=== PATIENT | female | born 1960 | race Caucasian/White ===

== ENCOUNTER 2019-08-09 12:30 | Emergency (ER) | payer OTHER, SELFPAY ==
[2019-08-09 12:32] VITALS: BP 163/88; PULSE 90; RESP 18; TEMP 36.3; O2SAT 99; BMI 33.7
--- NOTE | 2019-08-09 13:04 | ED.VISSUMM ---
- ER Visit Summary Date of Service: 08/09/19 Chief Complaint: Leg infection History of Present Illness: The patient is a 58 F with medial left lower leg redness and warmth. Patient also has lower extremity edema which is worse since she ran out of her HCTZ. Denies any chest pain, leg pain. Denies cough or hemoptysis. Denies shortness of breath, fever, or any other associated symptoms. Physical Examination: Vital signs unremarkable. Afebrile. Alert and oriented. No acute distress. Heart regular rate and rhythm. Lungs clear. Abdomen soft nontender. Skin unremarkable except for her left lower leg. There is some erythema and warmth medially. The skin is intact. This is approximately the size of the patient's open hand. Symmetric lower extremity edema, 1+, nontender. Neurovascular intact distally. Test Results: None indicated Emergency Department Course and Treatment: We will refill her HCTZ. Patient is planning to follow-up with a local venture capital analyst. She has a history of hypertension and edema. She is not in any distress and does not need a cardiac work-up. Nothing to suggest PE. Patient has a possible mild cellulitis. Will start Bactrim and Keflex. She will return if this worsens or if she has systemic symptoms like fever. Treatment Plan: Bactrim, Keflex, HCTZ Disposition: Discharge Impression: Left lower extremity cellulitis This note was generated with [email or web address] dictation software. It may contain incorrect words, spelling, and punctuation that were not noted in review of the chart prior to signing
--- NOTE | 2019-08-09 13:07 | ED.DEP ---
ED Disposition - Plan for ED Patient: Instructions: Cellulitis Prescriptions: Smz/Tmp Ds [Bactrim Ds] 1 tab PO BID #20 tab Prescription Printed Hydrochlorothiazide [Hctz] 25 mg PO DAILY #30 tab Prescription Printed Cephalexin [Keflex] 500 mg PO Q6 #40 cap Prescription Printed Referrals: Ivis Arnold [NON-STAFF] -
[2019-08-09] MEDS: Smz/Tmp Ds Tablet 1 TABLET PO (13:57)
[2019-08-09] MEDS: Cephalexin 250 MG Capsule 500 MG PO (13:57)
== END 2019-08-09 14:05 | disposition home or self-care (01) ==
LOC: ED 13:21
PROVIDERS: Emergency Provider Emergency Medicine
DX: L03.116 Cellulitis of left lower limb (principal); I10 Essential (primary) hypertension; Z72.0 Tobacco use
CPT/HCPCS: 99282

== ENCOUNTER → 2019-08-30 12:12 | Outpatient (CLI) | payer OTHER, SELFPAY ==
[2019-08-30 11:21] VITALS: BMI 33.7
[2019-08-30 13:37] LABS: Absolute Lymphocyte Count 1.38 X10^3/uL (0.83-4.51); Absolute Neutrophil Count 3.5 X10^3/uL (2.0-7.7); Basophil# 0.04 X10^3/uL; Basophil% 0.7 % (0-1); Eosinophil# 0.13 X10^3/uL; Eosinophils% 2.3 % (0-5); Hematocrit 40.4 % (37-47); Lymphocyte # 1.38 X10^3/ul (4.0); Lymphocyte % 24.3 % (19-41); Mean Corp Hgb Conc 32.2 g/dL (32-36); Mean Corpuscular Hgb 29.7 pg (27.0-32.0); Mean Corpuscular Volume 92.2 fL (81-99); Mean Platelet Vol. 11.8 fl (6.2-12.0); Monocyte# 0.59 X10^3/uL; Monocyte% 10.4 % (0-10); NRBC Flagged by Analyzer 0 % (0-5); Neutrophil # 3.54 X10^3/uL (2.7-7.7); Neutrophil % 62.1 % (47-70); Platelet Count 207 K/mm3 (150-450); RBC Distribution Width CV 14.8 % (11.6-14.6); RBC Distribution Width SD 50.8 fl (35.1-43.9); Red Blood Count 4.38 M/mm3 (4.2-5.4); White Blood Count 5.7 K/mm3 (4.4-11.0)
[2019-08-30 14:04] LABS: Vitamin D,25 Hydroxy 23.9 ng/mL
[2019-08-30 14:10] LABS: ALB/GLOB Ratio 0.9 RATIO (0.9-2.4); AST(SGOT) 23 U/L (15-37); Alanine Aminotransfer ALT/SGPT 31 U/L (13-56); Albumin, Serum 3.5 g/dL (3.2-5.0); Alkaline Phosphatase 132 U/L (45-117); Anion Gap 3 (5-15); BUN 13 mg/dL (7-18); BUN/Creat Ratio 17.4 RATIO (10-20); Calcium,Total 8.8 mg/dL (8.5-10.1); Chloride 106 mmol/L (98-107); Cholesterol 183 mg/dL (200); Creatinine, Serum 0.75 mg/dL (0.55-1.02); EST Glomerular Filtration Rate 85 mL/min (>60); Est Glom Filt Rate - Afr Amer 103 mL/min (>60); Globulin 4.1 g/dL (2.2-4.2); Glucose 86 mg/dL (74-106); High Density Lipoprotein 56 mg/dL; Potassium 3.7 mmol/L (3.5-5.1); Protein, Total 7.6 g/dL (6.4-8.2); Sodium Level 141 mmol/L (136-145); T4 Free Direct 1.07 ng/dL (0.76-1.46); Thyroid Stim Hormone (TSH) 1.14 uIU/mL (0.358-3.74); Triglycerides 87 mg/dL; Very Low Density Lipoprotein 17 mg/dL (5-40)
== END ==
LOC: LABSPEC 12:14
PROVIDERS: PCP Internal Medicine; Referring Provider Internal Medicine; Visit Provider Internal Medicine
DX: Z13.29 Encounter for screening for other suspected endocrine disorder (principal); E55.9 Vitamin D deficiency, unspecified; I10 Essential (primary) hypertension; E78.5 Hyperlipidemia, unspecified
CPT/HCPCS: 80053; 80061; 82306; 84439; 84443; 85025

== ENCOUNTER → 2019-09-06 11:57 | Outpatient (CLI) | payer SELFPAY ==
[2019-08-30 11:21] VITALS: BMI 33.7
--- NOTE | 2019-09-06 12:04 | BI_ITS ---
MAMMOGRAPHY - BILATERAL SCREENING REASON FOR EXAM: Female, 58 years old. Routine annual screening examination. PERTINENT HISTORY: Aunt with breast cancer. TECHNIQUE: Digital bilateral breast nasir (3D mammographic acquisition) in the CC and MLO projections. 2-D mediolateral oblique (MLO) and craniocaudad (CC) views of both breasts were obtained. CAD: Full Field Digital Mammography with Computer Added Detection was performed. COMPARISON: Comparison is made with prior outside examination dated October 19, 2016. FINDINGS: Breast Composition: The breasts are almost entirely fatty. There are no dominant masses or suspicious calcifications. No other significant abnormalities are identified. There has been no significant change since the prior study. BI/SCREEN MAMM (CAD) W/NASIR BILAT IMPRESSION: Stable bilateral screening mammogram. Yearly follow-up mammogram recommended. (A) ASSESSMENT CATEGORY: BIRADS Category 1: Negative. A letter regarding these results will be sent to the patient by the facility within 30 days. Approximately 10% of breast cancers are not detected by mammography. A normal mammogram should not delay biopsy of a clinically suspicious abnormality. [id number] Electronically Signed: Aleksey Ibarra, at 14:21 EDT , Service support ,
== END ==
LOC: OPBI 12:04
PROVIDERS: PCP Internal Medicine; Referring Provider Internal Medicine; Visit Provider Internal Medicine
DX: Z12.31 Encounter for screening mammogram for malignant neoplasm of breast (principal)
CPT/HCPCS: 77063; 77067

== ENCOUNTER → 2020-07-24 11:22 | Outpatient (CLI) | payer MEDICAID, SELFPAY ==
[2020-06-25 10:41] VITALS: BMI 35.2
--- NOTE | 2020-07-24 11:28 | RAD_ITS ---
STUDY: X-RAY - PELVIS AND BILATERAL HIPS REASON FOR EXAM: Bilateral hip pain, fell on left hip this morning, bilateral hip arthroplasties in 2009. TECHNIQUE: AP view of the pelvis.? 2 views of the right hip, and 2 views of the left hip were obtained. COMPARISON: None. FINDINGS: There are surgical clips overlying the left upper sacrum. Normal bilateral iliac wings, sacroiliac joints and visualized sacrum. Normal bilateral superior and inferior pubic rami. Normal pubic symphysis. Normal bilateral ischial tuberosities. There is a right hip arthroplasty without evidence of complication. There is a left hip arthroplasty without evidence of complication. RAD/Hips B/L min 2 views w/ Pelvis IMPRESSION: Uncomplicated bilateral hip arthroplasties. Electronically Signed: Elias Tabares MD at 15:17 EST Tel , Service support ,
== END ==
PROVIDERS: PCP Internal Medicine; Referring Provider Nurse Practitioner Family; Visit Provider Nurse Practitioner Family
DX: M16.0 Bilateral primary osteoarthritis of hip (principal)
CPT/HCPCS: 73521

== ENCOUNTER → 2020-09-25 10:44 | Outpatient (CLI) | payer MEDICAID, SELFPAY ==
[2020-09-25 10:15] VITALS: BMI 33.6
[2020-09-25 12:40] LABS: Anion Gap 2 (5-15); BUN 15 mg/dL (7-18); BUN/Creat Ratio 17.9 RATIO (10-20); Calcium,Total 8.9 mg/dL (8.5-10.1); Chloride 106 mmol/L (98-107); Creatinine, Serum 0.84 mg/dL (0.55-1.02); EST Glomerular Filtration Rate 74 mL/min (>60); Est Glom Filt Rate - Afr Amer 90 mL/min (>60); Glucose 93 mg/dL (74-106); Potassium 4.4 mmol/L (3.5-5.1); Sodium Level 140 mmol/L (136-145)
[2020-09-25 12:46] LABS: Vitamin D,25 Hydroxy 19.4 ng/mL
== END ==
PROVIDERS: PCP Internal Medicine; Referring Provider Internal Medicine; Visit Provider Internal Medicine
DX: E55.9 Vitamin D deficiency, unspecified (principal); I10 Essential (primary) hypertension
CPT/HCPCS: 36415; 80048; 82306

== ENCOUNTER → 2020-12-25 09:36 | Outpatient (CLI) | payer MEDICAID, SELFPAY ==
[2020-12-25 09:08] VITALS: BMI 34.7
[2020-12-25 12:01] LABS: Absolute Neutrophil Count 3.2 X10^3/uL (2.0-7.7); Basophil# 0.02 X10^3/uL; Basophil% 0.3 % (0-1); Eosinophil# 0.21 X10^3/uL; Eosinophils% 3.5 % (0-5); Hematocrit 41.3 % (37-47); Hemoglobin 13.5 g/dL (12.0-15.0); Lymphocyte % 28.7 % (19-41); Mean Corp Hgb Conc 32.7 g/dL (32-36); Mean Corpuscular Hgb 30.1 pg (27.0-32.0); Mean Corpuscular Volume 92.2 fL (81-99); Mean Platelet Vol. 11.8 fl (6.2-12.0); Monocyte# 0.79 X10^3/uL; Monocyte% 13.3 % (0-10); NRBC Flagged by Analyzer 0 % (0-5); Neutrophil # 3.18 X10^3/uL (2.7-7.7); Neutrophil % 53.9 % (47-70); Platelet Count 241 K/mm3 (150-450); RBC Distribution Width CV 15.3 % (11.6-14.6); RBC Distribution Width SD 52.1 fl (35.1-43.9); Red Blood Count 4.48 M/mm3 (4.2-5.4); White Blood Count 5.9 K/mm3 (4.4-11.0)
[2020-12-25 12:18] LABS: ALB/GLOB Ratio 0.8 RATIO (0.9-2.4); AST(SGOT) 15 U/L (15-37); Alanine Aminotransfer ALT/SGPT 27 U/L (13-56); Albumin, Serum 3.3 g/dL (3.2-5.0); Alkaline Phosphatase 111 U/L (45-117); Anion Gap 3 (5-15); BUN 28 mg/dL (7-18); BUN/Creat Ratio 29.1 RATIO (10-20); Calcium,Total 8.9 mg/dL (8.5-10.1); Chloride 107 mmol/L (98-107); Cholesterol 173 mg/dL (200); Creatinine, Serum 0.96 mg/dL (0.55-1.02); EST Glomerular Filtration Rate 63 mL/min (>60); Est Glom Filt Rate - Afr Amer 76 mL/min (>60); Globulin 4.1 g/dL (2.2-4.2); Glucose 89 mg/dL (74-106); High Density Lipoprotein 48 mg/dL; Potassium 4.2 mmol/L (3.5-5.1); Protein, Total 7.4 g/dL (6.4-8.2); Sodium Level 138 mmol/L (136-145); Triglycerides 76 mg/dL; Very Low Density Lipoprotein 15 mg/dL (5-40)
== END ==
PROVIDERS: PCP Internal Medicine; Referring Provider Internal Medicine; Visit Provider Internal Medicine
DX: E78.5 Hyperlipidemia, unspecified (principal); I10 Essential (primary) hypertension
CPT/HCPCS: 36415; 80053; 80061; 85025

== ENCOUNTER → 2021-03-29 08:55 | Outpatient (CLI) | payer MEDICAID, SELFPAY ==
[2021-03-29 12:07] LABS: Anion Gap 5 (5-15); BUN 26 mg/dL (7-18); BUN/Creat Ratio 25.2 RATIO (10-20); Calcium,Total 9.1 mg/dL (8.5-10.1); Chloride 108 mmol/L (98-107); Creatinine, Serum 1.03 mg/dL (0.55-1.02); EST Glomerular Filtration Rate 58 mL/min (>60); Est Glom Filt Rate - Afr Amer 70 mL/min (>60); Glucose 91 mg/dL (74-106); Potassium 4.5 mmol/L (3.5-5.1); Sodium Level 141 mmol/L (136-145)
[2021-03-29 12:10] LABS: Vitamin D,25 Hydroxy 71.3 ng/mL
== END ==
PROVIDERS: PCP Internal Medicine; Referring Provider Internal Medicine; Visit Provider Internal Medicine
DX: E55.9 Vitamin D deficiency, unspecified (principal); I10 Essential (primary) hypertension
CPT/HCPCS: 36415; 80048; 82306

== ENCOUNTER 2021-04-30 05:32 | Day surgery (SDC) | payer MEDICAID, SELFPAY ==
--- NOTE | 2021-04-29 10:14 | EKG12_ITS ---
Test Reason : PRE-OP Blood Pressure : / mmHG Vent. Rate : 063 BPM Atrial Rate : 063 BPM P-R Int : 146 ms QRS Dur : 086 ms QT Int : 390 ms P-R-T Axes : 042 016 023 degrees QTc Int : 399 ms Normal sinus rhythm Normal ECG Confirmed by JOSEFA DONALDSON, DEISI ([id number]), editorial director AMBER CORCORAN ([id number]) on 05/03/2021 9:43:14 AM Referred By: Yeny Wise Confirmed By:ALIN RIVERO MD
[2021-04-29 10:54] LABS: Absolute Lymphocyte Count 1.82 X10^3/uL (0.83-4.51); Absolute Neutrophil Count 3.1 X10^3/uL (2.0-7.7); Basophil# 0.02 X10^3/uL; Basophil% 0.3 % (0-1); Eosinophil# 0.18 X10^3/uL; Eosinophils% 3.1 % (0-5); Hematocrit 37.7 % (37-47); Hemoglobin 12.4 g/dL (12.0-15.0); Lymphocyte # 1.82 X10^3/ul (0.83-4.51); Lymphocyte % 31.4 % (19-41); Mean Corp Hgb Conc 32.9 g/dL (32-36); Mean Corpuscular Hgb 30.5 pg (27.0-32.0); Mean Corpuscular Volume 92.6 fL (81-99); Mean Platelet Vol. 11.7 fl (6.2-12.0); Monocyte# 0.69 X10^3/uL; Monocyte% 11.9 % (0-10); NRBC Flagged by Analyzer 0 % (0-5); Neutrophil # 3.08 X10^3/uL (2.7-7.7); Neutrophil % 53.1 % (47-70); Platelet Count 227 K/mm3 (150-450); RBC Distribution Width CV 14.1 % (11.6-14.6); RBC Distribution Width SD 48.3 fl (35.1-43.9); Red Blood Count 4.07 M/mm3 (4.2-5.4); White Blood Count 5.8 K/mm3 (4.4-11.0)
[2021-04-29 11:16] LABS: Magnesium 2.1 mg/dL (1.6-2.6)
[2021-04-29 11:21] LABS: ALB/GLOB Ratio 0.8 RATIO (0.9-2.4); AST(SGOT) 20 U/L (15-37); Alanine Aminotransfer ALT/SGPT 22 U/L (13-56); Albumin, Serum 3.3 g/dL (3.2-5.0); Alkaline Phosphatase 95 U/L (45-117); Anion Gap 4 (5-15); BUN 35 mg/dL (7-18); BUN/Creat Ratio 28.7 RATIO (10-20); Calcium,Total 9.3 mg/dL (8.5-10.1); Chloride 106 mmol/L (98-107); Creatinine, Serum 1.22 mg/dL (0.55-1.02); EST Glomerular Filtration Rate 48 mL/min (>60); Est Glom Filt Rate - Afr Amer 58 mL/min (>60); Globulin 4.3 g/dL (2.2-4.2); Glucose 90 mg/dL (74-106); Potassium 3.9 mmol/L (3.5-5.1); Protein, Total 7.6 g/dL (6.4-8.2); Sodium Level 138 mmol/L (136-145)
[2021-04-30] VITALS (15 sets, daily range): BP systolic 98–151; BP diastolic 59–96; PULSE 47–81; RESP 14–16; TEMP 36.3–36.9; O2SAT 95–100; BMI 33.7
[2021-04-30] MEDS: dexAMETHasone 10 MG/ML Vial 8 MG IV (06:19)
[2021-04-30] MEDS: Celecoxib 200 MG Capsule 400 MG PO (06:19)
[2021-04-30] MEDS: Lactated Ringers 1,000 ML 40 ML IV ×2 (06:19→08:30)
[2021-04-30] MEDS: Enoxaparin 40 MG/0.4 ML Syringe SC (06:20)
[2021-04-30] MEDS: Gabapentin 600 MG Tablet PO (06:20)
[2021-04-30] MEDS: Acetaminophen 500 MG Tablet 1000 MG PO ×3 (06:20→21:39)
[2021-04-30] MEDS: Scopolamine 1mg/72hr Patch 1 PATCH TD (06:20)
--- NOTE | 2021-04-30 07:29 | PCM.HP.BLA ---
History and Physical Date of Admission: 04/30/21 Vital Signs 04/15/21 15:10 Height 5 ft 5 in Weight: 206 lb BMI 34.2 BP 140/90 H Intake Visit Reasons: [facility] BSO medicaid form needs signed Chief Complaint: pre op [facility] BSO Wildlife Refuge Specialist Required: No Is patient in pain?: No Allergies latex Allergy (Verified 04/15/21 15:10) Hives Medications compress.stocking,knee,reg,lrg #2 ea 08/30/19 [Rx Confirmed 04/15/21] hydrochlorothiazide 25 mg tablet 25 mg PO DAILY #90 tab 09/14/20 [Rx Confirmed 04/15/21] meclizine 25 mg tablet 25 mg PO TID PRN #60 tab 09/25/20 [Rx Confirmed 04/15/21] acetaminophen 650 mg tablet,extended release 650 mg PO Q8H 12/25/20 [History Confirmed 04/15/21] lisinopril 10 mg tablet 10 mg PO QDAY #90 tab 01/04/21 [Rx Confirmed 04/15/21] meloxicam 7.5 mg tablet 7.5 mg PO DAILY PRN #30 tab 02/11/21 [Rx Confirmed 04/15/21] diphenhydramine HCl 25 mg capsule 25 mg PO QHS 03/09/21 [History Confirmed 04/15/21] Is last menstrual period known: No Post menopausal: Yes Patient : No : No PFSH Medical History Abscess of left kidney Arthritis Asthma Back problem Bladder prolapse Callus of foot COVID-19 vaccine dose declined Dizziness Flu vaccine need Gout High blood pressure High cholesterol Hypertension Hypertension Osteoarthritis Prolapse of bladder Seasonal allergies Solitary kidney, acquired Urinary frequency UTI (urinary tract infection) Vertigo Vision problem Vitamin D deficiency Vitamin deficiency Surgical History History of left hip replacement History of right hip replacement Family History Other Alcohol abuse Anxiety Arthritis Asthma Breast cancer CVA (cerebral vascular accident) Cancer Depression Diabetes FH: defects Heart disease High cholesterol Hypertension Kidney disease Mental disorder Myocardial infarction Seizures Severe allergy Social History Smoking Status: Former smoker alcohol intake: current alcohol intake frequency: a few times a month substance use type: does not use what type of physical activity do you participate in: walking frequency: daily seatbelt use: always do you feel safe at home: Yes additional social history: cleaning service HPI TV BSO medicaid form needs signed Details: NICHELLE FERGUSON is a 60 year old who presents for preop visit having TVH BSO for prolapse. Female Reproductive History Menopausal Symptoms: Yes night sweats Pregancy History 2 Elective abortions Hx Para 1 Spontaneous abortions 1 Hx # Term Pregnancies Ectopic pregnancies Hx # Pregnancies Multiple births # of living children 1 ROS Const Constitutional: Reports night sweats Eyes Eyes: Denies system reviewed and no additional complaints, except as documented, as per HPI, blurry vision, change in vision, diplopia, dry eyes, irritation, loss of peripheral vision, photophobia or spots in vision ENT ENT: Reports system reviewed and no additional complaints, except as documented Cardio Card: Denies chest pain Resp Resp: Denies cough or dyspnea GI GI: Denies abdominal pain, bloating, change in stool character, constipation, fecal incontinence, nausea or vomiting : Reports prolapse symptoms, urinary incontinence and vaginal dryness; Denies pelvic pain, sexual dysfunction, urinary frequency, urinary urgency, vaginal discharge, vaginal odor or vaginal pruritus Musc Musc: Reports arthralgias and back pain; Denies muscle weakness Skin Skin/Breast: Denies system reviewed and no additional complaints, except as documented, as per HPI, acne, alopecia, change in hair, nail changes, change in pigmentation, changing lesions, dry skin, hirsutism, jaundice, lesions, new lesions, pruritus, rash, sores, breast mass, breast pain, breast skin changes or other Neuro Neuro: Reports system reviewed and no additional complaints, except as documented Psych Psych: Denies anxiety or depression Endo Endo: Denies cold intolerance, excessive sweating, heat intolerance or polydipsia Isaac/Lymph Hematologic/Lymphatic: Denies system reviewed and no additional complaints, except as documented, Denies as per HPI, Denies easy bleeding, Denies easy bruising, Denies lymphadenopathy and Denies other Exam Const General: cooperative, healthy appearing, comfortable, no acute distress and well developed Orientation: alert HENMT Head: normal to inspection, normocephalic and atraumatic Ears: hearing grossly normal bilaterally and external ears normal Nose: external nose normal and nares normal Face and sinus: normal facial exam Neck Neck: normal visual inspection, full ROM, no lymphadenopathy and trachea midline Thyroid: thyroid normal Chest Chest palpation & inspection: normal inspection of the chest Breast inspection: normal inspection of the breasts, normal inspection of the axillae, abnormal inspection of the axilla and abnormal inspection of the breast Resp Effort & Inspection: normal respiratory effort Auscultation: clear to auscultation bilaterally Cardio Rate: regular rate Rhythm: regular rhythm Heart Sounds: S1 normal and S2 normal GI Inspection: normal to inspection and non-distended Palpation: soft, no hepatosplenomegaly, no hepatomegaly, not rigid and nontender General: bladder normal to palpation External Female Exam: abnormal external appearance (atrophic introitus), normal appearance of the urethra and no lesions Urethra: normal appearance of the urethra Speculum Exam - Vagina: abnormal appearance of the vagina, normal vaginal discharge, vagina atrophic and no lesions Speculum Exam - Cervix: normal appearance of the cervix Bimanual Exam- Vagina & Uterus: normal bimanual exam, uterine size normal, bladder normal to palpation, uterine shape normal, uterine mobility normal and non-tender Bimanual Exam- Adnexa, other: normal adnexae, no masses, rectocele, cystocele and vaginal apex descent Pelvic Support: cystocele, rectocele and vaginal apex descent Musc Other: gross motor intact no deficits, full bilateral strength Skin General: no rashes or lesions noted and atrophy Neuro General: patient alert, patient awake, moves all extremities and no focal motor deficits Motor: muscle tone normal throughout Extrem General: normal to inspection and no pedal edema Psych Appearance: grossly normal Mental Status: mental status grossly normal Affect: normal affect Speech and Movement: speech and movement normal Coding Level of Care Code No Charge Diagnoses Incomplete uterovaginal prolapse N81.2 Assessment and Plan Assessment and Plan (1) Incomplete uterovaginal prolapse: Status: Acute Comment: TVHBSO combo case with alejandro Santos - Dr. Yeny Wise MD: After discussing the patient's diagnosis and treatment plan options, patient wishes to proceed with surgical management. I have discussed with the patient the risks, benefits, and alternatives of the procedure which include but are not limited to risks of anesthesia, bleeding, infection, possible damage to bowel, bladder, or surrounding vasculature which could lead to additional surgery to evaluate any complications. Patient agrees to procedure and wishes to proceed. ACOG/uptodate references given for additional information regarding procedure. UPDATE- I have seen the patient and performed any clinically relevant updates to the history and physical exam. Yeny Wise MD
--- NOTE | 2021-04-30 07:30 | HYST_PTH ---
PATIENT: NICHELLE FERGUSON LOC: [facility] – [place] U#:[id number] AGE/SX: 60/F ROOM: RE04/30/[address]: Dr. Yeny Wise MD : 1960 BED: DIS: 05/01/2021 SPEC #: [id number] RECD: 04/30/21 12:27 STATUS: CATHRYN RODRIGUEZ #: [id number] JACLYN: 04/30/21 07:[address]: Yeny Wise DEPT: SURGICAL PATHOLOGY RECD BY: Precious Sosa ENTERED: 04/30/21 12:38 SP TYPE: HYSTERECT OTHR DR: MD Dr. Cuca Ibarra MD Tissues: Uterus, NOS Procedures: Surgery Specimen Level V HEADER OPERATION: ERAS, vaginal hysterectomy, salpingo-oophorectomy PRE-OP DIAGNOSIS: Incomplete uterovaginal prolapse TISSUE SUBMITTED: Cervix, uterus, bilateral fallopian tubes and ovaries MICROSCOPIC DIAGNOSIS Uterus, hysterectomy: Cervix ? nabothian cysts and mild chronic inflammation. Endometrium ? inactive with focal cystic change. Myometrium ? adenomyosis. Right and left ovaries ? corpora albicantia and benign epithelial cysts. Right and left fallopian tubes ? no pathologic change. AM:ziyad 05/03/2021 MICROSCOPIC DESCRIPTION Slides are reviewed. GROSS DESCRIPTION Received in fixative is one container labeled with the patient's name and designated uterus, cervix, bilateral fallopian tubes and ovaries. The specimen consists of a hysterectomy specimen consisting of uterus with cervix and detached bilateral fallopian tubes and ovaries. The uterus with cervix weighs 32 gm and measures 7 x 4 x 2.5 cm. The serosal surface is flood, glistening. The ectocervical mucosa is unremarkable. The external os is slit-like in contour. The endocervical canal measures 2.5 cm in length and the endocervical mucosa is flood, glistening and unremarkable. Sections of the cervix reveal a few cysts filled with mucoid material. The triangular endometrial cavity measures 3.5 cm in length and 1.5 cm in width. The endometrium is flood, glistening without any mass lesion and measures <0.1 cm in thickness. Sections of the uterine wall do not reveal any mass lesion and measures 1 cm in thickness. The fallopian tubes are not identified as right or left. One of the fallopian tubes measure 3 cm in length and 0.5 cm in diameter. The fimbrial end is identified. Sections reveal unremarkable cut surfaces. No tubo-ovarian adhesions are identified. Adjacent ovary measures 1.5 x 1 x 0.5 cm. Sections reveal unremarkable cut surfaces. The second fallopian tube measures 2.5 cm in length and 0.6 cm in diameter. It is similar appearance to the first one. The second ovary is present in two separate pieces and measures 1 x 0.7 x 0.5 cm and 1 x 0.2 x 0.2 cm. Sections reveal unremarkable cut surfaces. Business Systems Consultant sections are submitted in eight cassettes as follows: 1 - anterior cervix, 2 - posterior cervix, 3 & 4 - anterior uterine wall, 5 & 6 - posterior uterine wall, 7 - one fallopian tube and adjacent ovary, 8 - second fallopian tube and ovary, second ovary submitted in entirety. / RUTH:ziyad 04/30/21 TC:5 CPT: 53775
--- NOTE | 2021-04-30 07:30 | PCM.OPRPT ---
Problems Associated Problem List Diagnoses (1) Incomplete uterovaginal prolapse: (2) Hypertension: (3) Asthma: Report of Operation Date of Procedure: 04/30/21 Pre-Operative Diagnosis: see PL Post-Operative Diagnosis: same Surgery/Procedure Performed:: TVH BSO Description of Surgical Findings:: nl uterus tubes ovaries senior biostatistician/group leader: Anju Oglesby Type of Anesthesia: General Specimen's removed: uterus, tubes, ovaries Drains: fuentes Estimated Blood Loss (mL): 75 Fluids Replaced: crystalloid Description of Procedure: Patient was taken to the operating room and was placed under general anesthesia was prepped and draped in normal sterile fashion in the dorsal lithotomy position. Preoperative antibiotics and SCDs and Fuentes catheter was placed inside the bladder. Weighted speculum was placed in the vagina and the anterior and posterior lip of the cervix was grasped with 2 Tom clamps and circumferentially injected with dilute vasopressin. A circumferential incision was made with a scalpel and the posterior cul-de-sac was entered into sharply and a longneck speculum was placed. The anterior cul-de-sac was also dissected down and entered into sharply and the uterosacral ligaments were clamped cut and suture ligated bilaterally followed by the cardinal ligaments which were Clamped cut and suture ligated bilaterally with 0 Monocryl. The uterus serially descended and progressive bites were taken bilaterally up to the level of the utero-ovarian ligament bilaterally which was clamped transected and double ligated with 0 Monocryl suture and 0 Vicryl free tie. Bilateral fallopian tubes and ovaries were well visualized and noted be within normal limits and the IP ligament was transected across the base with a cony clamp, then ovaries and tubes removed and the pedicle double ligated with O monocryl. Excellent hemostasis was noted. The vagina was closed with [id number] 0 Vicryl pop offs including the posterior and anterior peritoneum in the reapproximation. Excellent hemostasis was noted. Then Dr. Sanchez began her portion of the procedure. Grafts/Implants Used: none Complications none Admit VTE Documentation VTE Present on Admission: No VTE Mechan Device Prophylaxis: SCD's VTE Pharm Prophylaxis ordered?: Yes Multi Select Codes Urinary/Genital Urinary/Genital CPT Codes: 88086 TVH+BS/O <250gr uterus
[2021-04-30] MEDS: Cefazolin 2 GM in 0.9% Normal Saline 100 ML IV (07:40)
--- NOTE | 2021-04-30 07:45 | PCM.DC ---
Discharge Instructions Diet Discharge Diet: No restrictions Activity Discharge Activity: Return to Normal Activity, May Not Drive (while taking narcotic pain medications.) and May Shower May resume sexual activity in: 6-8 weeks Dressing / Incision Call your doctor if your incision/area has: Continuous Slow Oozing, Sudden Increased Bleeding, Increased Pain/ Swelling, Increased Redness and Foul Smelling Discharge Call your doctor if you observe: Fever of 101 or Higher, Inability to urinate, Inability to have a bowel movement and Using more than 1 pad per hour Follow Up Care Please Follow Up With: Yeny Wise MD Test Results: Test results from this visit will be discussed in further detail at your follow-up appointment, if applicable. Discharge Plan Admission Primary Reason for Your Visit: hysterectomy Attending Provider: Yeny Wise Primary Care Provider: Solange Nuñez Consulting Providers: Cuca Sanchez Discharge Orders/Prescriptions Prescriptions: New oxycodone-acetaminophen [Percocet] 5-325 mg tablet 1 tab PO Q6H PRN (Reason: pain) 7 Days Qty: 20 RF: 0 naproxen [naproxen] 500 MG tablet 500 mg PO BID PRN PRN (Reason: Pain) Qty: 30 RF: 1 Continued (DME) compress.stocking,knee,reg,lrg Misc See Rx Instructions .ROUTE .MEDSUPPLY Qty: 2 RF: 1 meclizine 25 mg tablet 25 mg PO TID PRN (Reason: dizziness) Qty: 60 RF: 1 diphenhydramine HCl [Benadryl] 25 mg capsule 100 mg PO 4X/DAY RF: 0 acetaminophen 650 mg Tablet Extended Release 650 mg PO Q8H PRN (Reason: Pain) RF: 0 hydrochlorothiazide 25 mg tablet 25 mg PO DAILY Qty: 90 RF: 3 lisinopril 10 mg tablet 10 mg PO QDAY Qty: 90 RF: 3 Referrals / Follow Up: Solange Nuñez MD [Primary Care Provider] - Disposition Disposition (needs filled in before D/C Order can be placed): Home, Self Care
[2021-04-30] MEDS: Lubricating Jelly 60 GM Tube 30 GM (07:50)
[2021-04-30 07:51] LABS: Bedside Glucose 84 mg/dL (70-110)
--- NOTE | 2021-04-30 08:12 | PCM.OPRPT ---
Problems Associated Problem List Diagnoses (1) Incomplete uterovaginal prolapse: (2) Solitary kidney, acquired: Report of Operation Date of Procedure: 04/30/21 Pre-Operative Diagnosis: Incomplete uterovaginal prolapse, solitary right kidney Post-Operative Diagnosis: Same Surgery/Procedure Performed:: Anterior repair with dermis, bilateral sacrospinous ligament fixation, posterior repair, cystoscopy with right ureteral catheterization Surgeon: Cuca Sanchez Type of Anesthesia: General Specimen's removed: None Estimated Blood Loss (mL): 25 cc Description of Procedure: The patient is a 60-year-old female with pelvic organ prolapse who presents for definitive surgical intervention after being evaluated in the office with cystoscopy and urodynamics. Informed consent was obtained. The patient was taken to the operating room and placed on the operating room table. Anesthesia monitored the head, neck, airway, IV access and vital signs throughout the case. Once anesthesia was appropriately ministered the patient was placed into dorsal lithotomy in Trendelenburg position and was prepped and draped in usual sterile fashion. A Joseph catheter was inserted under sterile conditions. At this time Dr. Wise proceeded with her portion of the procedure and then closed the vaginal cuff. At this time I isolated the anterior vaginal wall and injected submucosally with vasopressin for hydrostatic dissection and hemostatic control. A midline vertical incision approximately 2 cm in length was then made and then sharp and blunt dissection was performed on both sides until the ischial spines and sacrospinous ligaments were identified and freed from surrounding tissues. The Capio device was used to pass an Ethibond suture through each sacrospinous ligament. The suture was then brought through the dermis that was trimmed to size and then out into the vaginal mucosa at the cuff line laterally. The dermis was then attached bilaterally to the area of the white line and at the area of the bladder neck using 2-0 Vicryl interrupted sutures. The midline incision was closed using running interlocking 2-0 Vicryl. The Ethibond sutures were then tied into position. The posterior vaginal wall was wide open with no perineal body support. The posterior wall was then injected submucosally with vasopressin for hydrostatic dissection and hemostatic control. A midline incision was made. Sharp and blunt dissection was performed bilaterally until the rectovaginal fascia was clearly identified. This was brought together in a 2 layer closure. The perineal body was also reconstructed using interrupted sutures. At this time the incision was closed using running interlocking 2-0 Vicryl. The Joseph catheter was removed with deflation of the balloon. A cystoscope was inserted through the urethra under direct visualization into the urinary bladder. The bladder mucosa was visualized in its entirety and found to be without evidence of injury, foreign body or hemorrhage. The patient having only her right kidney remaining, a right ureteral jet was clearly observed and a whistle-tip catheter easily inserted to 20 cm without evidence of obstruction or injury. At this time the Joseph catheter was replaced and the vagina was packed with vaginal packing. She was awakened and taken to the recovery room in good condition. There were no complications during this procedure. Grafts/Implants Used: Dermis Complications None Admit VTE Documentation VTE Present on Admission: Yes VTE Mechan Device Prophylaxis: SCD's VTE Pharm Prophylaxis ordered?: Yes
--- NOTE | 2021-04-30 08:14 | PCM.DC ---
Discharge Instructions Diet Discharge Diet: No restrictions Activity May resume sexual activity in: 8 weeks Lifting Restrictions: 5 pounds Additional Activity Instructions:: no exercising, no strenuous activity, no sexual activity, no tub bathing, hot tubs or swimming Dressing / Incision Call your doctor if your incision/area has: Continuous Slow Oozing, Sudden Increased Bleeding, Increased Pain/ Swelling, Increased Redness and Foul Smelling Discharge Call your doctor if you observe: Fever of 101 or Higher, Inability to urinate, Inability to have a bowel movement and Using more than 1 pad per hour Follow Up Care Please Follow Up With: Yeny Wise MD Test Results: Test results from this visit will be discussed in further detail at your follow-up appointment, if applicable. Discharge Plan Admission Primary Reason for Your Visit: hysterectomy Attending Provider: Yeny Wise Primary Care Provider: Solange Nuñez Consulting Providers: Cuca Sancehz Discharge Orders/Prescriptions Prescriptions: New oxycodone-acetaminophen [Percocet] 5-325 mg tablet 1 tab PO Q6H PRN (Reason: pain) 7 Days Qty: 20 RF: 0 naproxen [naproxen] 500 MG tablet 500 mg PO BID PRN PRN (Reason: Pain) Qty: 30 RF: 1 cephalexin [cephalexin] 500 MG capsule 500 mg PO Q12 3 Days Qty: 6 RF: 0 Continued (DME) compress.stocking,knee,reg,lrg Misc See Rx Instructions .ROUTE .MEDSUPPLY Qty: 2 RF: 1 meclizine 25 mg tablet 25 mg PO TID PRN (Reason: dizziness) Qty: 60 RF: 1 diphenhydramine HCl [Benadryl] 25 mg capsule 100 mg PO 4X/DAY RF: 0 acetaminophen 650 mg Tablet Extended Release 650 mg PO Q8H PRN (Reason: Pain) RF: 0 hydrochlorothiazide 25 mg tablet 25 mg PO DAILY Qty: 90 RF: 3 lisinopril 10 mg tablet 10 mg PO QDAY Qty: 90 RF: 3 Referrals / Follow Up: Solange Nuñez MD [Primary Care Provider] - Disposition Disposition (needs filled in before D/C Order can be placed): Home, Self Care
[2021-04-30] MEDS: Vasopressin 20 UNITS/ML Vial (09:05)
[2021-04-30] MEDS: Ondansetron 4 MG/2 ML Vial IV (10:00)
--- NOTE | 2021-04-30 10:34 | SUR.PHASEI ---
Latex free fuentes d/t patient allergy. Patient monitored on etCO2 NC for ERAS protocol. will continue to monitor.
--- NOTE | 2021-04-30 11:34 | SUR.PHASEI ---
This nurse called administrative secretary to update family. Patient stable and comfortable. Awaiting room to be cleaned.
[2021-04-30] MEDS: hydroCHLOROthiazide 25 MG Tablet PO (13:29)
[2021-04-30] MEDS: Lactated Ringers 1,000 ML 70 ML IV (13:29)
[2021-04-30] MEDS: Docusate Sodium 100 MG Capsule PO ×2 (13:29→21:39)
[2021-04-30] MEDS: Meclizine HCl 25 MG Tablet PO (13:30)
[2021-04-30] MEDS: Ketorolac 30 MG/ML Syringe IV ×2 (15:04→21:39)
[2021-04-30] MEDS: Cephalexin 500 MG Capsule PO (21:39)
[2021-05-01] MEDS: Acetaminophen 500 MG Tablet 1000 MG PO ×2 (03:19→08:24)
[2021-05-01 03:50] VITALS: BP 116/71; PULSE 71; RESP 18; TEMP 36.7; O2SAT 95
[2021-05-01] MEDS: Ketorolac 30 MG/ML Syringe IV (05:54)
[2021-05-01 06:27] LABS: Hematocrit 31.4 % (37-47); Hemoglobin 10.3 g/dL (12.0-15.0); Mean Corp Hgb Conc 32.8 g/dL (32-36); Mean Corpuscular Hgb 30.4 pg (27.0-32.0); Mean Corpuscular Volume 92.6 fL (81-99); Mean Platelet Vol. 12.2 fl (6.2-12.0); Platelet Count 193 K/mm3 (150-450); RBC Distribution Width CV 14.3 % (11.6-14.6); RBC Distribution Width SD 48.3 fl (35.1-43.9); Red Blood Count 3.39 M/mm3 (4.2-5.4); White Blood Count 15.6 K/mm3 (4.4-11.0)
[2021-05-01 06:51] VITALS: O2SAT 95
[2021-05-01 07:56] VITALS: BP 113/63; PULSE 70; RESP 15; TEMP 36.8; O2SAT 99
[2021-05-01] MEDS: hydroCHLOROthiazide 25 MG Tablet PO (08:24)
[2021-05-01] MEDS: Enoxaparin 40 MG/0.4 ML Syringe SC (08:24)
[2021-05-01] MEDS: Lisinopril 10 MG Tablet PO (08:24)
[2021-05-01] MEDS: Cephalexin 500 MG Capsule PO (08:24)
[2021-05-01] MEDS: Docusate Sodium 100 MG Capsule PO (08:24)
--- NOTE | 2021-05-01 10:52 | PCM.PN.GU ---
Subjective Subjective Sitting up in bed, comfortable. Some cramping from gas type pain. Ambulating and tolerating p.o. intake. Catheter has been removed and she has not yet voided.No other issues overnight. Objective Data Objective Data Vital Signs: Vital Signs Temp Pulse Resp BP Pulse Ox 98.3 F 70 15 113/63 99 05/01/21 07:56 05/01/21 07:56 05/01/21 07:56 05/01/21 07:56 05/01/21 07:56 Oxygen Flow Rate (L/min) 4 Oxygen Delivery Method Room Air Weight: 92 kg Body Mass Index (BMI) 33.7 Intake & Output: Intake and Output for Last 24 Hours 04/29/21 04/30/21 05/01/21 23:59 23:59 23:59 Intake Total 2585.5 / 3185.5 1900 / 1900 Output Total 685 / 1010 875 / 875 Balance 1900.5 / 2175.5 1025 / 1025 Lab / Micro Data Result Diagrams: 05/01/21 05:53 04/29/21 10:34 Labs: Laboratory Results - last 24 hr 05/01/21 05:53: WBC 15.6 H, RBC 3.39 L, Hgb 10.3 L, Hct 31.4 L, MCV 92.6, MCH 30.4, MCHC 32.8, RDW Std Deviation 48.3 H, RDW Coeff of Linda 14.3, Plt Count 193, MPV 12.2 H Micro: Microbiology 04/29/21 10:20 Interface Orders SARS-CoV-2 Antigen (Rapid) - Final Physical Exam Narrative Alert and oriented x3. Comfortable in no acute distress. Abdomen soft. Joseph has been removed. Assessment & Plan Assessment/Plan (1) Incomplete uterovaginal prolapse: (2) Solitary kidney, acquired: PLAN: Await trial of void Home later today
== END 2021-05-01 13:00 | disposition home or self-care (01) ==
LOC: SDC 05:32 → AC 06:45 → MS3 05-01 12:45 → AC 05-03 09:46 → MS3 05-03 09:46
PROVIDERS: Anesthesiology; Urology; PCP Internal Medicine; Referring Provider Obstetrics & Gynecology; Visit Provider Obstetrics & Gynecology
PROC: (CPT 58260; principal; 2021-04-30 07:10)
PROC: (CPT 57260; 2021-04-30 07:10)
DX: N81.2 Incomplete uterovaginal prolapse (principal); Z90.5 Acquired absence of kidney; I10 Essential (primary) hypertension; E78.00 Pure hypercholesterolemia, unspecified; J45.909 Unspecified asthma, uncomplicated; Z82.49 Family history of ischemic heart disease and other diseases of the circulatory system; Z91.040 Latex allergy status; Z83.49 Family history of other endocrine, nutritional and metabolic diseases; Z87.891 Personal history of nicotine dependence; Z96.643 Presence of artificial hip joint, bilateral
CPT/HCPCS: 00944; 52005; 57260; 57282; 58262; 36415; 80053; 82962; 83735; 85025; 85027; 86850; 86900; 86901; 87426; 88307; 93005; 99251; 99406; C9803; J7120; C1758; G0463; J2405

== ENCOUNTER 2021-07-05 08:59 | Outpatient (CLI) | payer MEDICAID, SELFPAY ==
[2021-07-05 12:17] LABS: Erythrocyte Sedimentation Rate 42 mm/hr (0-30)
[2021-07-05 12:27] LABS: Anion Gap 3 (5-15); BUN 28 mg/dL (7-18); BUN/Creat Ratio 32.6 RATIO (10-20); Calcium,Total 9.1 mg/dL (8.5-10.1); Chloride 107 mmol/L (98-107); Creatinine, Serum 0.86 mg/dL (0.55-1.02); EST Glomerular Filtration Rate 72 mL/min (>60); Est Glom Filt Rate - Afr Amer 87 mL/min (>60); Glucose 90 mg/dL (74-106); Potassium 4.3 mmol/L (3.5-5.1); Rheumatoid Factor < 10.0 IU/mL (<15); Sodium Level 138 mmol/L (136-145)
[2021-07-07 13:40] LABS: CCP IgG Antibodies 7 units (0-19)
== END 2021-07-05 23:59 | disposition home or self-care (01) ==
LOC: BIMLAB 09:00
PROVIDERS: PCP Internal Medicine; Referring Provider Internal Medicine; Visit Provider Internal Medicine
DX: M19.90 Unspecified osteoarthritis, unspecified site (principal)
CPT/HCPCS: 36415; 80048; 85652; 86200; 86431

== ENCOUNTER → 2021-12-21 | Outpatient (CLI) | payer OTHER, MEDICAID, SELFPAY ==
[2021-12-21 12:29] LABS: Absolute Neutrophil Count 5.8 X10^3/uL (2.0-7.7); Basophil# 0.03 X10^3/uL; Basophil% 0.3 % (0-1); Eosinophil# 0.08 X10^3/uL; Eosinophils% 0.9 % (0-5); Hematocrit 40.5 % (37-47); Hemoglobin 13.2 g/dL (12.0-15.0); Mean Corp Hgb Conc 32.6 g/dL (32-36); Mean Corpuscular Hgb 30.9 pg (27.0-32.0); Mean Corpuscular Volume 94.8 fL (81-99); Mean Platelet Vol. 11.8 fl (6.2-12.0); Monocyte# 0.82 X10^3/uL; Monocyte% 9.5 % (0-10); NRBC Flagged by Analyzer 0 % (0-5); Neutrophil # 5.79 X10^3/uL (2.7-7.7); Neutrophil % 67.1 % (47-70); Platelet Count 233 K/mm3 (150-450); RBC Distribution Width CV 14.9 % (11.6-14.6); RBC Distribution Width SD 51.5 fl (35.1-43.9); Red Blood Count 4.27 M/mm3 (4.2-5.4); White Blood Count 8.6 K/mm3 (4.4-11.0)
[2021-12-21 13:06] LABS: ALB/GLOB Ratio 0.8 RATIO (0.9-2.4); AST(SGOT) 26 U/L (15-37); Alanine Aminotransfer ALT/SGPT 35 U/L (13-56); Albumin, Serum 3.7 g/dL (3.2-5.0); Alkaline Phosphatase 117 U/L (45-117); Anion Gap 5 (5-15); BUN 23 mg/dL (7-18); BUN/Creat Ratio 26.5 RATIO (10-20); Calcium,Total 9.7 mg/dL (8.5-10.1); Chloride 106 mmol/L (98-107); Cholesterol 193 mg/dL (200); Creatinine, Serum 0.87 mg/dL (0.55-1.02); EST Glomerular Filtration Rate 71 mL/min (>60); Est Glom Filt Rate - Afr Amer 86 mL/min (>60); Globulin 4.4 g/dL (2.2-4.2); Glucose 86 mg/dL (74-106); High Density Lipoprotein 56 mg/dL; Potassium 3.9 mmol/L (3.5-5.1); Protein, Total 8.1 g/dL (6.4-8.2); Sodium Level 139 mmol/L (136-145); Triglycerides 84 mg/dL; Very Low Density Lipoprotein 17 mg/dL (5-40); Vitamin D,25 Hydroxy 36.6 ng/mL
== END | disposition home or self-care (01) ==
PROVIDERS: PCP Internal Medicine; Referring Provider Internal Medicine; Visit Provider Internal Medicine
DX: E55.9 Vitamin D deficiency, unspecified (principal); I10 Essential (primary) hypertension; E78.5 Hyperlipidemia, unspecified
CPT/HCPCS: 36415; 80053; 80061; 82306; 85025

== ENCOUNTER → 2022-01-07 | Outpatient (CLI) | payer OTHER, MEDICAID, SELFPAY ==
--- NOTE | 2022-01-07 14:58 | BI_ITS ---
MAMMOGRAPHY - BILATERAL SCREENING REASON FOR EXAM: Female, 61 years old. Routine annual screening examination. PERTINENT HISTORY: Aunt with breast cancer. TECHNIQUE: Digital bilateral breast nasir (3D mammographic acquisition) in the CC and MLO projections. 2-D mediolateral oblique (MLO) and craniocaudad (CC) views of both breasts were obtained. CAD: Full Field Digital Mammography with Computer Added Detection was performed. COMPARISON: Screening mammogram from 09/06/2019. FINDINGS: Breast Composition: There are scattered areas of fibroglandular density. There are no dominant masses or suspicious calcifications. No other significant abnormalities are identified. There has been no significant change since the prior study. BI/SCRN MAMM (CAD)W/NASIR BILAT IMPRESSION: Stable bilateral screening mammogram. Yearly follow-up mammogram recommended. (A) ASSESSMENT CATEGORY: BIRADS Category 1: Negative. A letter regarding these results will be sent to the patient by the facility within 30 days. Approximately 10% of breast cancers are not detected by mammography. A normal mammogram should not delay biopsy of a clinically suspicious abnormality. Electronically Signed: Ariel Patrick, at 15:56 EDT ,
== END | disposition home or self-care (01) ==
LOC: OPBI 14:58
PROVIDERS: PCP Internal Medicine; Referring Provider Internal Medicine; Visit Provider Internal Medicine
DX: Z12.31 Encounter for screening mammogram for malignant neoplasm of breast (principal)
CPT/HCPCS: 77063; 77067

== ENCOUNTER → 2022-03-08 | Outpatient (CLI) | payer OTHER, MEDICAID, SELFPAY ==
--- NOTE | 2022-03-09 05:59 | PFTCOMP ---
COMPLETE PULMONARY FUNCTION TEST INTERPRETATION Brief HPI: Patient is a 61-year-old female, currently under the care of Dr. Nuñez, who presents to [facility] for complete pulmonary function tests secondary to diagnosis of asthma. Respiratory therapist reports good effort and reproducible results. Interpretation: Forced expiration spirometry shows a mild large airways obstructive ventilatory defect with an FEV1 of 80% predicted. There is a significant bronchodilator response in FEV1 by strict ATS criteria. Spirograms are of good quality and plateau slowly, indicating slowly emptying areas of the lungs. The respiratory flow volume loop shows decreased expiratory flow rates at high lung volumes consistent with small airways obstruction. Lung volumes by body plethysmography show a slightly decreased total lung capacity at 3.97 L, 78% predicted. All other lung volumes are reduced symmetrically. Diffusion capacity by carbon monoxide is at the lower limit of normal at 70% predicted. The airway resistance is elevated. No previous pulmonary function tests were available for review. Impression: Fully reversible mild large airways obstructive ventilatory defect, but does have a residual mild restriction with symmetric reduction diffusion capacity.
== END | disposition home or self-care (01) ==
LOC: PSN 06:56
PROVIDERS: PCP Internal Medicine; Referring Provider Internal Medicine; Visit Provider Internal Medicine
DX: J45.909 Unspecified asthma, uncomplicated (principal)
CPT/HCPCS: 94060; 94726; 94729

== ENCOUNTER → 2022-06-10 | Outpatient (CLI) | payer OTHER, MEDICAID, SELFPAY ==
[2022-06-10 16:37] LABS: Absolute Neutrophil Count 2.4 X10^3/uL (2.0-7.7); Basophil# 0.02 X10^3/uL; Basophil% 0.4 % (0-1); Eosinophil# 0.14 X10^3/uL; Eosinophils% 2.5 % (0-5); Hematocrit 37.9 % (37-47); Hemoglobin 12.6 g/dL (12.0-15.0); Lymphocyte % 42.1 % (19-41); Mean Corp Hgb Conc 33.2 g/dL (32-36); Mean Corpuscular Hgb 31.5 pg (27.0-32.0); Mean Corpuscular Volume 94.8 fL (81-99); Mean Platelet Vol. 11.3 fl (6.2-12.0); Monocyte# 0.74 X10^3/uL; NRBC Flagged by Analyzer 0 % (0-5); Neutrophil # 2.39 X10^3/uL (2.7-7.7); Neutrophil % 41.8 % (47-70); Platelet Count 243 K/mm3 (150-450); RBC Distribution Width CV 15.2 % (11.6-14.6); RBC Distribution Width SD 52.9 fl (35.1-43.9); White Blood Count 5.7 K/mm3 (4.4-11.0)
[2022-06-10 17:33] LABS: ALB/GLOB Ratio 0.8 RATIO (0.9-2.4); AST(SGOT) 20 U/L (15-37); Alanine Aminotransfer ALT/SGPT 39 U/L (13-56); Albumin, Serum 3.5 g/dL (3.2-5.0); Alkaline Phosphatase 127 U/L (45-117); Anion Gap 4 (5-15); BUN 19 mg/dL (7-18); BUN/Creat Ratio 21.4 RATIO (10-20); Chloride 107 mmol/L (98-107); Creatinine, Serum 0.89 mg/dL (0.55-1.02); EST Glomerular Filtration Rate 69 mL/min (>60); Est Glom Filt Rate - Afr Amer 84 mL/min (>60); Globulin 4.2 g/dL (2.2-4.2); Glucose 97 mg/dL (74-106); Magnesium 2.3 mg/dL (1.6-2.6); Potassium 3.9 mmol/L (3.5-5.1); Protein, Total 7.7 g/dL (6.4-8.2); Sodium Level 140 mmol/L (136-145)
== END | disposition home or self-care (01) ==
LOC: BIMLAB 15:04
PROVIDERS: PCP Internal Medicine; Referring Provider Internal Medicine; Visit Provider Internal Medicine
DX: I10 Essential (primary) hypertension (principal)
CPT/HCPCS: 36415; 80053; 83735; 85025

== ENCOUNTER → 2022-10-05 | Outpatient (CLI) | payer OTHER, MEDICAID, SELFPAY ==
--- NOTE | 2022-10-05 08:42 | BD_ITS ---
STUDY: DUAL ENERGY X-RAY ABSORPTIOMETRY / DXA REASON FOR EXAM: Female, 61 years old. Post Menopausal TECHNIQUE: Bone Mineral Density (BMD) measurements of lumbar spine and left forearm were obtained. The patient has bilateral total hip replacements. COMPARISON: None. FINDINGS: Lumbar Spine (L1-L4): g/cm2 (1.052) / T-score (0.0) / Z-score (1.5) Findings are suggestive of normal bone density with a low fracture risk. Left Forearm: g/cm2 (0.449) / T-score (-2.4) / Z-score (-1.1) BD/Dexa Bone Density Study IMPRESSION: The patient is considered osteopenic as outlined below according to World Kirt Organization (WHO) criteria with a high fracture risk Reference Information: The T-score is the number of standard deviations above or below the standard which is normal for young adults at their peak bone mineral density. The World Health Organization (WHO) interprets the T-scores as follows: Above -1 Normal bone density Between -1 and -2.5 Osteopenia Equal to / or below -2.5 Osteoporosis As a practical clinical guideline, osteopenia may be graded as follows: Mild -1 through -1.5 Moderate -1.6 through -2.0 Severe -2.1 through -2.4 The Z-score is the number of standard deviations above or below age-matched controls. A Z-score of less than -1.5 would be considered abnormal. References: 1. NIH Osteoporosis and Related Bone Diseases www osteo.org 2. International Society for Clinical Densitometry www iscd.org 3. National Osteoporosis Foundation www nof.org Electronically Signed: Aleksey Ibarra MD at 8:48 EDT ,
== END | disposition home or self-care (01) ==
LOC: OPBD 08:34
PROVIDERS: PCP Internal Medicine; Referring Provider Internal Medicine; Visit Provider Internal Medicine
DX: Z78.0 Asymptomatic menopausal state (principal)
CPT/HCPCS: 77080

== ENCOUNTER → 2022-11-21 | Outpatient (CLI) | payer MEDICAID, SELFPAY ==
--- NOTE | 2022-11-21 16:02 | NEURO ---
NCS and/or EMG Patient Report Ordering Doctor: Flaco Yen DATE OF SERVICE: 11/21/22 Findings: Nerve conduction studies were performed in the right and left upper extremities. The right median motor study recording the abductor pollicis brevis showed a normal amplitude, prolonged distal latency and borderline conduction velocity. The right ulnar motor study recording the abductor digiti minimi showed a normal amplitude, normal distal latency and normal conduction velocity. No conduction block or focal slowing was present across the elbow. The right median sensory response recording digit two showed a reduced amplitude, prolonged latency and markedly slowed conduction velocity. The right ulnar sensory response recording digit five showed a normal amplitude, latency and conduction velocity. The right radial sensory response recording over the extensor snuff box showed a normal amplitude, latency and conduction velocity. The left median motor study recording the abductor pollicis brevis showed a reduced amplitude, prolonged distal latency and slowed conduction velocity. The left ulnar motor study recording the abductor digiti minimi showed a normal amplitude, normal distal latency and normal conduction velocity. No conduction block or focal slowing was present across the elbow. The left median sensory response recording digit two showed a educed amplitude, prolonged latency and markedly slowed conduction velocity. The left ulnar sensory response recording digit five showed a normal amplitude, latency and conduction velocity. The left radial sensory response recording over the extensor snuff box showed a normal amplitude, latency and conduction velocity. Needle EMG was omitted due to the confirmatory nature of the nerve conduction studies and the lack of associated radicular complaints. Impression: This is an abnormal study. 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 The pathophysiology is demyelinating with evidence of secondary sensory axon loss. These findings are compatible with the clinical diagnosis of bilateral carpal tunnel syndrome. Rober Shannon D.O. Multi Select Codes Neurology Neurology Interp Codes: 74624-50 [facility] (interp)
== END | disposition home or self-care (01) ==
PROVIDERS: PCP Internal Medicine; Referring Provider Physician Assistant Surgical; Visit Provider Physician Assistant Surgical
DX: M19.031 Primary osteoarthritis, right wrist (principal); G56.03 Carpal tunnel syndrome, bilateral upper limbs; M19.032 Primary osteoarthritis, left wrist
CPT/HCPCS: 95911

== ENCOUNTER → 2022-12-09 | Outpatient (CLI) | payer MEDICAID, SELFPAY ==
[2022-12-09 11:46] LABS: Vitamin D,25 Hydroxy 60.1 ng/mL
[2022-12-09 12:05] LABS: ALB/GLOB Ratio 0.8 RATIO (0.9-2.4); AST(SGOT) 20 U/L (15-37); Alanine Aminotransfer ALT/SGPT 25 U/L (13-56); Albumin, Serum 3.3 g/dL (3.2-5.0); Alkaline Phosphatase 98 U/L (45-117); Anion Gap 5 (5-15); BUN 11 mg/dL (7-18); BUN/Creat Ratio 12.9 RATIO (10-20); Calcium,Total 9.3 mg/dL (8.5-10.1); Chloride 109 mmol/L (98-107); Cholesterol 181 mg/dL (200); Creatinine, Serum 0.85 mg/dL (0.55-1.02); EST Glomerular Filtration Rate 72 mL/min (>60); Est Glom Filt Rate - Afr Amer 87 mL/min (>60); Globulin 3.9 g/dL (2.2-4.2); Glucose 88 mg/dL (74-106); High Density Lipoprotein 52 mg/dL; Protein, Total 7.2 g/dL (6.4-8.2); Sodium Level 142 mmol/L (136-145); Triglycerides 81 mg/dL; Very Low Density Lipoprotein 16 mg/dL (5-40)
== END | disposition home or self-care (01) ==
LOC: LAB 09:31
PROVIDERS: PCP Internal Medicine; Referring Provider Internal Medicine; Visit Provider Internal Medicine
DX: Z01.818 Encounter for other preprocedural examination (principal); E55.9 Vitamin D deficiency, unspecified; I10 Essential (primary) hypertension
CPT/HCPCS: 36415; 80048; 80053; 80061; 82306

== ENCOUNTER 2022-12-15 11:30 | Day surgery (SDC) | payer MEDICAID, SELFPAY ==
--- NOTE | 2022-12-09 08:54 | EKG12_ITS ---
Test Reason : PREOP Blood Pressure : / mmHG Vent. Rate : 058 BPM Atrial Rate : 058 BPM P-R Int : 150 ms QRS Dur : 084 ms QT Int : 396 ms P-R-T Axes : 051 023 018 degrees QTc Int : 388 ms Sinus bradycardia Otherwise normal ECG Confirmed by PIYUSH DONALDSON, AMRLIN ([id number]), editor book AMBER CORCORAN ([id number]) on 12/09/2022 12:54:49 PM Referred By: Niko Friend Confirmed By:MARLIN PICKETT MD
--- NOTE | 2022-12-09 09:20 | RAD_ITS ---
STUDY: X-RAY CHEST REASON FOR EXAM: Female, 62 years old. PREOP TECHNIQUE: PA and lateral views of the chest. COMPARISON: None. FINDINGS: Mild degree of increased markings at the lung bases just some mild bibasilar scarring. There is blunting of both cosmetic angles posteriorly. Normal size heart. Normal mediastinum and helen. Normal visualized pulmonary arteries. There is atherosclerotic calcification of the aortic arch with tortuosity. There are diffuse degenerative changes of the visualized thoracic spine. Mild dextroscoliosis of the thoracic spine. Normal visualized ribs, clavicles, and shoulders. There is no demonstrated abnormality of the visualized soft tissue structures of the upper abdomen. RAD/Chest PA and Lateral IMPRESSION: Mild increased linear markings at the lung bases suggesting mild scarring. Blunting of both costophrenic angles posteriorly. Electronically Signed: Aleksey Ibarra MD at 10:40 EDT ,
[2022-12-09 10:59] LABS: Absolute Lymphocyte Count 1.64 X10^3/uL (0.83-4.51); Basophil# 0.02 X10^3/uL; Basophil% 0.4 % (0-1); Eosinophil# 0.12 X10^3/uL; Eosinophils% 2.2 % (0-5); Hematocrit 39.5 % (37-47); Lymphocyte # 1.64 X10^3/ul (0.83-4.51); Lymphocyte % 30.7 % (19-41); Mean Corp Hgb Conc 32.9 g/dL (32-36); Mean Corpuscular Hgb 30.9 pg (27.0-32.0); Mean Corpuscular Volume 93.8 fL (81-99); Mean Platelet Vol. 11.7 fl (6.2-12.0); Monocyte# 0.58 X10^3/uL; Monocyte% 10.8 % (0-10); NRBC Flagged by Analyzer 0 % (0-5); Neutrophil # 2.97 X10^3/uL (2.7-7.7); Neutrophil % 55.5 % (47-70); Platelet Count 209 K/mm3 (150-450); RBC Distribution Width CV 14.6 % (11.6-14.6); RBC Distribution Width SD 50.4 fl (35.1-43.9); Red Blood Count 4.21 M/mm3 (4.2-5.4); White Blood Count 5.4 K/mm3 (4.4-11.0)
[2022-12-09 11:40] LABS: Anion Gap 5 (5-15); BUN 10 mg/dL (7-18); BUN/Creat Ratio 11.9 RATIO (10-20); Calcium,Total 9.4 mg/dL (8.5-10.1); Chloride 107 mmol/L (98-107); Creatinine, Serum 0.84 mg/dL (0.55-1.02); EST Glomerular Filtration Rate 73 mL/min (>60); Est Glom Filt Rate - Afr Amer 89 mL/min (>60); Glucose 87 mg/dL (74-106); Potassium 4.2 mmol/L (3.5-5.1); Sodium Level 141 mmol/L (136-145)
[2022-12-15] MEDS: Lactated Ringers 1,000 ML 15 ML IV (12:07)
[2022-12-15 12:09] VITALS: BP 95/57; PULSE 95; RESP 18; TEMP 36.6; O2SAT 98; BMI 34.4
[2022-12-15] MEDS: Cefazolin 2 GM in 0.9% Normal Saline 100 ML IV (14:07)
[2022-12-15] MEDS: Ropivacaine 0.5% 30 ML Vial (14:26)
[2022-12-15 14:45] VITALS: BP 108/66; BP 95/57; PULSE 68; RESP 16; O2SAT 97
[2022-12-15 14:50] VITALS: BP 100/63; BP 95/57; PULSE 64; RESP 16; O2SAT 96
[2022-12-15 14:55] VITALS: BP 95/57; BP 95/61; PULSE 68; RESP 16; O2SAT 98
[2022-12-15 15:00] VITALS: BP 105/65; BP 95/57; PULSE 65; RESP 16; TEMP 37.1; O2SAT 97
[2022-12-15 15:24] VITALS: BP 95/57
--- NOTE | 2022-12-15 19:19 | PCM.OPRPT ---
Report of Operation Date of Procedure: 12/15/22 Description of Surgical Findings:: Preoperative diagnosis: Left carpal Tunnel Syndrome Postoperative diagnosis: Left carpal Tunnel Syndrome Procedure: Left endoscopic Carpal Tunnel Release Surgeon: Niko Freind DO Irrigation Flume Layer: None Anesthesia: MAC anesthesia with [place] block Anesthesiologist: Dr. Katz Complications: None Drains: None Estimated blood loss: 5 cc Urinary output: None measured IV fluids: 900 cc crystalloid Specimens: None Surgical implants: None Surgical indications: This is a 62 female seen in the outpatient setting diagnosed with left carpal tunnel syndrome. The patient failed nonoperative management in the form of bracing, anti-inflammatory medications, activity modification. Carpal tunnel syndrome was confirmed on EMG/NCV. Operative intervention in form of endoscopic possible open carpal tunnel release was offered to the left hand. The risks, benefits, alternatives to procedure were reviewed with patient at length in the outpatient setting and he agreed to proceed. Risks included but were not limited to bleeding, infection, loss of life or limb, risk of anesthesia, incomplete release, neurovascular injury, persistent pain, need for additional surgery, stiffness, loss of hand function. Patient expressed understanding wish to proceed with surgery. Informed consent obtained in the office. Description of procedure: Patient was seen in preoperative holding area. Patient was identified by name, medical record number, date of . The operative extremity was marked with a surgical marker. We confirmed informed consent with the patient and all questions were answered to the patient's satisfaction. At time of his procedure, patient was brought to the operative suite and positioned supine a standard operating table. All bony prominences were well-padded. General anesthesia was induced and endotracheal tube placed. The operative upper extremity was then prepped for surgery by first applying a well-padded pneumatic tourniquet to the left upper arm. The hand table attached to the left side of the table. We spun the bed 90 degrees. Utilizing a dorsal hand vein IV catheter, a [place]her block was administered by the anesthesia staff by first exsanguinating the upper extremity. After administering the Asher block in removing the catheter, the left upper extremity was then prepped and draped in normal, sterile orthopedic fashion. 2 g Ancef was administered prior to incision by anesthesia staff. We performed a timeout at this point confirming side, site, and operation to be performed. No concerns voiced and elected to proceed. I first marked a transverse incision on the ulnar aspect of the palmaris longus tendon in the proximal wrist crease approximately 1-1/2 cm in length. Skin was sharply incised with 15 blade scalpel. Superficial veins were cauterized with bipolar cautery. The fatty layer was dissected through bluntly until the antebrachial fascia was encountered. The antebrachial fascia were split in line with the fibers as well as the incision with the Littler scissors. I then placed a skin hook around the antebrachial fascia distally. I open the proximal 1 cm longitudinally of the antebrachial fascia. I then sequentially dilated within the carpal tunnel utilizing Arthrex supplied dilators. I then utilized there synovial elevator to debride the undersurface of the transverse carpal ligament free from synovium. I then removed the elevator and inserted the centerline endoscopic carpal tunnel release system. The transverse carpal ligament was well visualized and free from underlying synovium. I identified its distal aspect by blotting the skin and perivascular fat was visualized. I then carefully deployed the scalpel from the sheath and, in retrograde fashion, sequentially released the transverse carpal ligament longitudinally. No aberrancies of the median nerve were apparent. Complete release was confirmed with Littler scissors acting as a probe. The tourniquet was then deflated. Hemostasis was excellent. A field block was administered with 7 cc 0.5% plain Marcaine. Skin was closed with interrupted horizontal mattress sutures of 4-0 nylon suture. Sterile compression dressing was then applied. Patient tolerated procedure well without apparent complication.She was transferred to PACU in stable condition. Post Operative Plan: Weightbearing: Nonweightbearing operative extremity Antibiotics: Ancef 2 g x 1 dose preoperatively DVT Prophylaxis: None indicated Joseph: None Dressing: Maintain surgical dressing x3 days then okay to remove and leave open to air X-Rays: 2 weeks postop in the office Pain Medication: [place] Rx upon discharge Follow-up: 2 weeks post-operatively with me in the office
== END 2022-12-15 15:26 | disposition home or self-care (01) ==
LOC: SDC 11:31 → AC 11:31
PROVIDERS: PCP Internal Medicine; Referring Provider Student in an Organized Health Care Education/Training Program; Visit Provider Student in an Organized Health Care Education/Training Program
PROC: (CPT 29848; principal; 2022-12-15 12:35)
DX: G56.02 Carpal tunnel syndrome, left upper limb (principal); M10.9 Gout, unspecified; J45.909 Unspecified asthma, uncomplicated; E78.5 Hyperlipidemia, unspecified; I10 Essential (primary) hypertension; E55.9 Vitamin D deficiency, unspecified; Z90.5 Acquired absence of kidney; F17.200 Nicotine dependence, unspecified, uncomplicated
CPT/HCPCS: 29848; 01810; 36415; 71046; 80048; 85025; 93005; J7120

== ENCOUNTER 2023-03-30 08:54 | Day surgery (SDC) | payer MEDICAID, SELFPAY ==
[2023-03-30 09:21] VITALS: BP 99/75; PULSE 70; RESP 16; TEMP 36.7; O2SAT 95; BMI 34.8
[2023-03-30] MEDS: Lactated Ringers 1,000 ML 15 ML IV (09:24)
[2023-03-30] MEDS: Cefazolin 2 GM in 0.9% Normal Saline (100mL Bag) 100 ML IV (10:04)
[2023-03-30] MEDS: Bupivacaine Mpf 0.5% 30 ML VIAL (10:30)
[2023-03-30 10:50] VITALS: BP 128/111; BP 99/75; PULSE 59; RESP 16; TEMP 36.1; O2SAT 98
[2023-03-30 10:55] VITALS: BP 113/79; BP 99/75; PULSE 57; RESP 16; O2SAT 98
[2023-03-30 11:00] VITALS: BP 111/88; BP 99/75; PULSE 56; RESP 16; O2SAT 98
[2023-03-30 11:05] VITALS: BP 108/81; BP 99/75; PULSE 58; RESP 16; TEMP 36.9; O2SAT 98
--- NOTE | 2023-03-30 11:22 | OP.PCM_ITS ---
Report of Operation Date of Procedure: 03/30/23 Description of Surgical Findings:: Preoperative diagnosis: Right carpal Tunnel Syndrome Postoperative diagnosis: Right carpal Tunnel Syndrome Procedure: Right endoscopic Carpal Tunnel Release Surgeon: Niko Friend DO Hiv/Aids Care Nurse: None Anesthesia: MAC anesthesia with Asher block Anesthesiologist: Dr. Stroud Complications: None Drains: None Estimated blood loss: 2 cc Urinary output: None measured IV fluids: Per anesthesia record Specimens: None Surgical implants: None Surgical indications: This is a 62 female seen in the outpatient setting diagnosed with right carpal tunnel syndrome. The patient failed nonoperative management in the form of bracing, anti-inflammatory medications, activity modification. Carpal tunnel syndrome was confirmed on EMG/NCV. Operative intervention in form of endoscopic possible open carpal tunnel release was off ered to the right hand. The risks, benefits, alternatives to procedure were reviewed with patient at length in the outpatient setting and he agreed to proceed. Risks included but were not limited to bleeding, infection, loss of life or limb, risk of anesthesia, incomplete release, neurovascular injury, persistent pain, need for additional surgery, stiffness, loss of hand function. Patient expressed understanding wish to proceed with surgery. Informed consent obtained in the office. Description of procedure: Patient was seen in preoperative holding area. Patient was identified by name, medical record number, date of . The operative extremity was marked with a surgical marker. We confirmed informed consent with the patient and all questions were answered to the patient's satisfaction. At time of his procedure, patient was brought to the operative suite and positioned supine a standard operating table. All bony prominences were well- padded. General anesthesia was induced and endotracheal tube placed. The operative upper extremity was then prepped for surgery by first applying a well- padded pneumatic tourniquet to the right upper arm. The hand table attached to the right side of the table. We spun the bed 90 degrees. Utilizing a dorsal hand vein IV catheter, a [place] block was administered by the anesthesia staff by first exsanguinating the upper extremity. After administering the Asher block in removing the catheter, the right upper extremity was then prepped and draped in normal, sterile orthopedic fashion. 2 g Ancef was administered prior to incision by anesthesia staff. We performed a timeout at this point confirming side, site, and operation to be performed. No concerns voiced and elected to proceed. I first marked a transverse incision on the ulnar aspect of the palmaris longus tendon in the proximal wrist crease approximately 1-1/2 cm in length. Skin was sharply incised with 15 blade scalpel. Superficial veins were cauterized with bipolar cautery. The fatty layer was dissected through bluntly until the antebrachial fascia was encountered. The antebrachial fascia were split in line with the fibers as well as the incision with the Littler scissors. I then placed a skin hook around the antebrachial fascia distally. I open the proximal 1 cm longitudinally of the antebrachial fascia. I then sequentially dilated within the carpal tunnel utilizing Arthrex supplied dilators. I then utilized there synovial elevator to debride the undersurface of the transverse carpal ligament free from synovium. I then removed the elevator and inserted the centerline endoscopic carpal tunnel release system. The transverse carpal ligament was well visualized and free from underlying synovium. I identified its distal aspect by blotting the skin and perivascular fat was visualized. I then carefully deployed the scalpel from the sheath and, in retrograde fashion, sequentially released the transverse carpal ligament longitudinally. No aberrancies of the median nerve were apparent. Complete release was confirmed with Littler scissors acting as a probe. The tourniquet was then deflated. Hemostasis was excellent. A field block was administered with cc 0.5% plain Marcaine. Skin was closed with interrupted horizontal mattress sutures of 4-0 nylon suture. Sterile compression dressing was then applied. Patient tolerated procedure well without apparent complication.She was transferred to PACU in stable condition. Intraoperative medications: Post Operative Plan: Weightbearing: Nonweightbearing operative extremity Antibiotics: Ancef 2 g x 1 dose preoperatively DVT Prophylaxis: None indicated Joseph: None Dressing: Okay to remove dressing on postoperative day #2 and shower X-Rays: 2 weeks postop in the office Pain Medication: Hydrocodone Rx upon discharge Follow-up: 2 weeks post-operatively with me in the office
--- NOTE | 2023-03-30 11:24 | DCINST_ITS ---
Discharge Instructions Follow Up Care Test Results: Test results from this visit will be discussed in further detail at your follow- up appointment, if applicable. Discharge Plan Admission Primary Reason for Your Visit: Right carpal tunnel release Attending Provider: Niko Friend Primary Care Provider: Solange Nuñez Instructions Additional Instructions / Restrictions: Follow preprinted instructions from your surgeons office Discharge Orders/Prescriptions Prescriptions: New hydrocodone-acetaminophen 5-325 mg Tablet 1 - 2 tab PO Q6H PRN PRN (Reason: Pain Score 1-5/10) 3 Days Qty: 12 0RF No Action ipratropium bromide 21 mcg (0.03 %) spray,non-aerosol 2 spray intranasal BID-TID PRN (Reason: allergy symptoms) Qty: 30 2RF Rx Instructions: administer into each nostril acetaminophen [Tylenol Arthritis Pain] 650 mg tablet extended release 2,600 mg PO Q8H PRN PRN (Reason: pain) (DME) compr.stocking,thigh,reg,large Misc See Rx Instructions .Route Qty: 2 2RF Rx Instructions: As directed cholecalciferol (vitamin D3) 125 mcg (5,000 unit) capsule 125 mcg PO DAILY Qty: 90 3RF calcium carbonate 600 mg calcium (1,500 mg) tablet 600 mg PO BID Qty: 180 3RF meclizine 25 mg tablet 25 mg PO BID Rx Instructions: prn for dizziness nabumetone 500 mg tablet 500 mg PO PRN Rx Instructions: TAKE 1 TABLET TWICE DAILY NEEDED FOR ARTHRITIS PAIN budesonide-formoterol [Symbicort] 160-4.5 mcg/actuation HFA aerosol inhaler 2 puff inhalation BID Qty: 10.2 1RF lisinopril 10 mg tablet 10 mg PO QDAY Qty: 90 3RF hydrochlorothiazide 25 mg tablet 25 mg PO DAILY Qty: 90 3RF albuterol sulfate 90 mcg/actuation HFA aerosol inhaler 2 puff inhalation Q6H PRN (Reason: shortness of breath or wheezing) Qty: 8.5 3RF Referrals / Follow Up: Solange Nuñez MD [Primary Care Provider] - Niko Friend DO [Med Staff - Active Staff] - Disposition Disposition (needs filled in before D/C Order can be placed): Home, Self Care
[2023-03-30 11:36] VITALS: BP 99/75
== END 2023-03-30 11:47 | disposition home or self-care (01) ==
LOC: SDC 08:55 → AC 08:56
PROVIDERS: PCP Internal Medicine; Referring Provider Student in an Organized Health Care Education/Training Program; Visit Provider Student in an Organized Health Care Education/Training Program
PROC: (CPT 29848; principal; 2023-03-30 10:00)
DX: G56.01 Carpal tunnel syndrome, right upper limb (principal); J44.9 Chronic obstructive pulmonary disease, unspecified; H81.10 Benign paroxysmal vertigo, unspecified ear; I10 Essential (primary) hypertension; E78.5 Hyperlipidemia, unspecified; Z90.710 Acquired absence of both cervix and uterus; M10.9 Gout, unspecified; Z90.5 Acquired absence of kidney; J30.2 Other seasonal allergic rhinitis; I87.2 Venous insufficiency (chronic) (peripheral); F17.200 Nicotine dependence, unspecified, uncomplicated; M81.0 Age-related osteoporosis without current pathological fracture; Z79.82 Long term (current) use of aspirin
CPT/HCPCS: 29848; 01830; J7120; J2405

== ENCOUNTER → 2023-08-08 | Outpatient (CLI) | payer MEDICAID, SELFPAY ==
[2023-08-08 08:39] LABS: Anion Gap 4 (5-15); BUN 23 mg/dL (7-18); BUN/Creat Ratio 22.3 RATIO (10-20); Calcium,Total 9.5 mg/dL (8.5-10.1); Chloride 107 mmol/L (98-107); Creatinine, Serum 1.03 mg/dL (0.55-1.02); EST Glomerular Filtration Rate 58 mL/min (>60); Est Glom Filt Rate - Afr Amer 70 mL/min (>60); Glucose 93 mg/dL (74-106); Potassium 4.5 mmol/L (3.5-5.1); Sodium Level 140 mmol/L (136-145)
== END | disposition home or self-care (01) ==
LOC: LAB 07:08
PROVIDERS: PCP Internal Medicine; Referring Provider Internal Medicine; Visit Provider Internal Medicine
DX: I10 Essential (primary) hypertension (principal)
CPT/HCPCS: 36415; 80048

== ENCOUNTER → 2023-08-09 | Outpatient (CLI) | payer MEDICAID, SELFPAY ==
[2023-08-09 13:11] LABS: PTHIN 46.8 pg/mL (18.4-80.1)
== END | disposition home or self-care (01) ==
LOC: BIMLAB 10:28
PROVIDERS: PCP Internal Medicine; Visit Provider Internal Medicine
DX: M81.0 Age-related osteoporosis without current pathological fracture (principal)
CPT/HCPCS: 36415; 83970

== ENCOUNTER 2023-09-27 09:45 | Day surgery (SDC) | payer MEDICAID, SELFPAY ==
[2023-09-27 10:01] VITALS: BP 149/82; PULSE 85; RESP 16; TEMP 36.4; O2SAT 100; BMI 34.8
[2023-09-27] MEDS: Lactated Ringers 1,000 ML 15 ML IV (10:11)
--- NOTE | 2023-09-27 10:38 | PCM.HP.STD ---
HPI - General General Date of Admission: 09/27/23 Date of Service: 09/27/23 Chief Complaint: Screening colonoscopy HPI Narrative NICHELLE FERGUSON, is a 62 F who presents today for screening colonoscopy. She had a colonoscopy approximately 10 years ago. She does not have any abdominal pain. She not have any nausea, vomiting or diarrhea. Overall she is in very good health. [facility] Medical History (Updated 09/25/23 @ 10:41 by Joy Russ) Abscess of left kidney Alcohol use Arthritis Arthritis Asthma Asthma Back pain Back problem Bladder disease Bladder prolapse BPPV (benign paroxysmal positional vertigo) Bruising Callus of foot Cardiology follow-up encounter Colon cancer screening COPD (chronic obstructive pulmonary disease) COVID-19 vaccine dose declined Easy bruising Flu vaccine need Gout Health care maintenance High blood pressure High cholesterol History of edema History of pain when walking History of steroid therapy History of stress test Hypertension Hypertension Hypertension Leg cramps Marijuana use Muscle cramps Osteoarthritis Osteoporosis Post-menopausal Prolapse of bladder Restless legs Seasonal allergies Smoker Solitary kidney, acquired Urinary frequency UTI (urinary tract infection) Varicose veins of both legs with edema Venous insufficiency of both lower extremities Vertigo Vertigo Vision problem Vitamin D deficiency Vitamin deficiency Wears dentures Wears glasses Home Medications acetaminophen 650 mg tablet,extended release (Tylenol Arthritis Pain) 1,300 mg PO Q12H PRN pain 06/10/22 [History Last Taken Unknown] compr.stocking,thigh,reg,large #2 ea 09/16/22 [Rx Last Taken Unknown] calcium carbonate 600 mg PO BID #180 tabs 10/17/22 [Rx Last Taken Unknown] cholecalciferol (vitamin D3) 125 mcg (5,000 unit) capsule 125 mcg PO DAILY #90 caps 10/17/22 [Rx Last Taken Unknown] lisinopril 10 mg tablet 10 mg PO QDAY #90 tabs 12/07/22 [Rx Last Taken 09/27/23 07:00] albuterol sulfate 90 mcg/actuation aerosol inhaler 2 puff inhalation Q6H PRN shortness of breath or wheezing #8.5 grams 12/09/22 [Rx Last Taken Unknown] hydrochlorothiazide 12.5 mg tablet 12.5 mg PO DAILY #90 tabs 05/12/23 [Rx Last Taken Unknown] ipratropium bromide 21 mcg (0.03 %) nasal spray 2 spray intranasal BID-TID PRN allergy symptoms #30 mL 05/17/23 [Rx Last Taken Unknown] Handicap Placard #1 ea 08/09/23 [Rx Last Taken Unknown] ibandronate 150 mg tablet 150 mg PO QMONTH #7 tabs 08/09/23 [Rx Last Taken Unknown] budesonide-formoterol HFA 160 mcg-4.5 mcg/actuation aerosol inhaler (Symbicort) 2 puff inhalation BID PRN ASTHMA 09/25/23 [History Last Taken Unknown] meclizine 25 mg tablet 25 mg PO BID 09/25/23 [History Last Taken Unknown] nabumetone 500 mg tablet 500 mg PO BID 09/25/23 [History Last Taken Unknown] Allergy/AdvReac Type Severity Reaction Status Date / Time adhesive tape Allergy Rash Verified 09/27/23 10:00 latex Allergy Hives Verified 09/27/23 10:00 Family History Other Alcohol abuse Anxiety Arthritis Asthma Breast cancer CVA (cerebral vascular accident) Cancer Depression Diabetes FH: defects Heart disease High cholesterol Hypertension Kidney disease Mental disorder Myocardial infarction Seizures Severe allergy Surgical History (Updated 09/25/23 @ 10:31 by Joy Russ) History of bladder suspension procedure History of cardiac catheterization History of carpal tunnel surgery of left wrist History of evacuation of hematoma History of kidney removal History of left hip replacement History of right hip replacement Hx of colonoscopy Hx of vaginal hysterectomy Social History Smoking Status: Current every day smoker tobacco type: cigarettes alcohol intake: current alcohol intake frequency: a few times a month substance use type: does not use what type of physical activity do you participate in: walking frequency: daily seatbelt use: always do you feel safe at home: Yes additional social history: cleaning service ROS Review of Systems ROS Unobtainable: other Constitutional Constitutional: Denies fatigue, fever(s), poor appetite, weight gain or weight loss ENT HEENT: Denies mouth lesions Cardiovascular Cardiovascular: Denies abdominal bloating, abdominal edema or abdominal pain Respiratory/Chest Respiratory/Chest: Denies change in mental status, change in phlegm color, chest congestion or chest tightness Gastrointestinal Gastrointestinal: Denies belching, bloating, change in bowel habits, change in stool character, chewing difficulty, coffee ground emesis, constipation, cramping, diarrhea, dyspepsia, dysphagia, early satiety, excessive flatus, fecal incontinence, heartburn, hematemesis, hematochezia, hemorrhoids, loose stools, melena, nausea, odynophagia, rectal bleeding, tenesmus, vomiting or weight changes Genitourinary Genitourinary: Denies abdominal discomfort, burning urination or itching Musculoskeletal Musculoskeletal: Reports as per HPI; Denies muscle weakness or myalgias Integumentary Integumentary: Denies jaundice Neurologic Neurologic: Denies lack of coordination or weakness Psychiatric Psychiatric: Denies confusion, depression, memory loss, mood swings, paranoia or suicidal ideation Endocrine Endocrinology: Denies systems reviewed and no addt'l complaints, except as documented Hematologic/Lymphatic Hematologic/Lymphatic: Denies anemia, easy bleeding, easy bruising or lymphadenopathy Allergic/Immunologic Allergic/Immunologic: Denies systems reviewed and no addt'l complaints, except as documented Vital Signs Vital Signs Vital Signs: 09/27/23 10:01 Temperature 97.5 F L Temperature Source Temporal Pulse Rate 85 Respiratory Rate 16 Blood Pressure 149/82 H Blood Pressure Mean 104 Blood Pressure Source Monitor Blood Pressure Position Sitting Blood Pressure Location Left Arm Pulse Ox 100 Oxygen Delivery Method Room Air Weight Weight: 203 lb Body Mass Index (BMI) 34.8 Physical Exam Const alert General Appearance: cooperative Orientation / Consciousness: oriented to person HEENT hearing grossly normal bilaterally Head and Scalp: normal to inspection Face and Sinus: face symmetric Nose: external nose normal Mouth: oral and palatal mucosa normal Eyes conjunctivae normal General Eye: normal appearance of both eyes Neck full ROM General: normal visual inspection Lymph Lymphatic: no lymphadenopathy noted Chest inspection of chest normal and palpation of chest normal Chest: symmetrical chest wall rise Resp normal respiratory effort Effort and Inspection: able to speak in complete sentences Cardio regular rate GI non-distended Percussion: normal to percussion Rectal Exam: deferred Neuro Speech: speech normal Gait (Neuro): normal gait Assessment & Plan Assessment/Plan (1) Encounter for screening for malignant neoplasm of colon: PLAN: She was explained alternatives, risk, benefits including not withstanding bleeding, infection, sepsis, perforation, need for emergent surgery . She will have an ASA of 3.
[2023-09-27 11:54] VITALS: BP 127/61; BP 149/82; PULSE 71; RESP 18; TEMP 36.5; O2SAT 100
--- NOTE | 2023-09-27 11:55 | OP.COLON_ITS ---
Patient Name: Sherice Michel Procedure Date: 09/27/2023 10:35 AM Date of : 1960 Age: 62 Procedure: Colonoscopy Indications: Screening for colorectal malignant neoplasm Providers: DO Alma Lara MD: Solange Nuñez MD Medicines: Monitored Anesthesia Care Patient Profile: This is a 62 year old female. Refer to note in patient chart for documentation of history and physical. Last Colonoscopy: 10 years ago. Complications: No immediate complications. Procedure: Pre-Anesthesia Assessment: - Prior to the procedure, a History and Physical was performed, and patient medications and allergies were reviewed. The risks and benefits of the procedure and the sedation options and risks were discussed with the patient. All questions were answered and informed consent was obtained. Patient identification and proposed procedure were verified by the physician. Mental Status Examination: normal. Prophylactic Antibiotics: The patient does not require prophylactic antibiotics. Prior Anticoagulants: The patient has taken no anticoagulant or antiplatelet agents. After reviewing the risks and benefits, the patient was deemed in satisfactory condition to undergo the procedure. The anesthesia plan was to use monitored anesthesia care (MAC). Immediately prior to administration of medications, the patient was re-assessed for adequacy to receive sedatives. The heart rate, respiratory rate, oxygen saturations, blood pressure, adequacy of pulmonary ventilation, and response to care were monitored throughout the procedure. The physical status of the patient was re-assessed after the procedure. After I obtained informed consent, the scope was passed under direct vision. Throughout the procedure, the patient's blood pressure, pulse, and oxygen saturations were monitored continuously. The Colonoscope was introduced through the anus and advanced to the cecum, identified by appendiceal orifice and ileocecal valve. The colonoscopy was performed without difficulty. The patient tolerated the procedure well. The quality of the bowel preparation was adequate. The ileocecal valve, appendiceal orifice, and rectum were photographed. Scope In: 11:30:39 AM Scope Withdrawal Time 0 hours 7 minutes 25 seconds Scope Out: 11:46:50 AM Total Procedure Duration Time 0 hours 16 minutes 11 seconds Findings: The perianal and digital rectal examinations were normal. Multiple small and large-mouthed diverticula were found in the recto-sigmoid colon, sigmoid colon and descending colon. The exam was otherwise without abnormality on direct and retroflexion views. Impression: - Diverticulosis in the recto-sigmoid colon, in the sigmoid colon and in the descending colon. - The examination was otherwise normal on direct and retroflexion views. - No specimens collected. Recommendation: - Discharge patient to home. - Resume previous diet. - Continue present medications. - Repeat colonoscopy in 10 years for screening purposes. Procedure Code(s): --- Professional --- G0121, Colorectal cancer screening; colonoscopy on individual not meeting criteria for high risk CPT copyright 2021 [employer]. All rights reserved. The codes documented in this report are preliminary and upon assistant chief engineer review may be revised to meet current compliance requirements. Naeem Couch DO 09/27/2023 11:54:31 AM This report has been signed electronically. Number of Addenda: 0 Note Initiated On: 09/27/2023 10:35 AM
--- NOTE | 2023-09-27 11:55 | OP.CCLET_ITS ---
09/27/2023 Solange Nuñez MD [address] [place] [address] [place] [address] Re : Colonoscopy procedure for Sherice Michel Dear Dr. Nuñez This procedure was performed on Wednesday, September 27, 2023. My impressions and recommendations are as follows: Impressions : - Diverticulosis in the recto-sigmoid colon, in the sigmoid colon and in the descending colon. - The examination was otherwise normal on direct and retroflexion views. - No specimens collected. Recommendations : - Discharge patient to home. - Resume previous diet. - Continue present medications. - Repeat colonoscopy in 10 years for screening purposes. My findings are described in the full procedure note, which is enclosed. If I can be of further assistance, please feel free to contact me at . Sincerely, Naeem Couch, 09/27/2023 11:54:31 AM This report has been signed electronically.
[2023-09-27 12:00] VITALS: BP 126/75; BP 149/82; PULSE 67; RESP 18; O2SAT 100
[2023-09-27 12:04] VITALS: BP 136/68; BP 149/82; PULSE 66; RESP 18; TEMP 36.6; O2SAT 100
[2023-09-27 12:16] VITALS: BP 149/82
== END 2023-09-27 12:32 | disposition home or self-care (01) ==
LOC: EN 09:45 → AC 09:46
PROVIDERS: PCP Internal Medicine; Referring Provider Internal Medicine; Visit Provider Internal Medicine Gastroenterology
PROC: 0DJD8ZZ Inspection of Lower Intestinal Tract, Via Natural or Artificial Opening Endoscopic (ICD-10-PCS; CPT 45378; principal; 2023-09-27 10:40)
DX: Z12.11 Encounter for screening for malignant neoplasm of colon (principal); J44.9 Chronic obstructive pulmonary disease, unspecified; K57.30 Diverticulosis of large intestine without perforation or abscess without bleeding; I10 Essential (primary) hypertension; F17.210 Nicotine dependence, cigarettes, uncomplicated; Z90.710 Acquired absence of both cervix and uterus; Z96.643 Presence of artificial hip joint, bilateral
CPT/HCPCS: 45378; J7120; J2405

== ENCOUNTER → 2023-10-09 | Outpatient (CLI) | payer MEDICAID, SELFPAY ==
--- NOTE | 2023-10-09 07:07 | BI_ITS ---
MAMMOGRAPHY - BILATERAL SCREENING REASON FOR EXAM: Female, 62 years old. Routine annual screening examination. PERTINENT HISTORY: Aunt with breast cancer. TECHNIQUE: Digital bilateral breast nasir (3D mammographic acquisition) in the CC and MLO projections. 2-D mediolateral oblique (MLO) and craniocaudad (CC) views of both breasts were obtained. CAD: Full Field Digital Mammography with Computer Added Detection was performed. COMPARISON: Comparison is made with prior study dated January 07, 2022 and September 06, 2019. FINDINGS: Breast Composition: The breasts are almost entirely fatty. There are no dominant masses or suspicious calcifications. Stable small benign-appearing bilateral axillary lymph nodes. No other significant abnormalities are identified. There has been no significant change since the prior study. BI/SCRN MAMM (CAD)W/NASIR BILAT IMPRESSION: Stable bilateral screening mammogram. Yearly follow-up mammogram recommended. (A) ASSESSMENT CATEGORY: BIRADS Category 2: Benign. A letter regarding these results will be sent to the patient by the facility within 30 days. Approximately 10% of breast cancers are not detected by mammography. A normal mammogram should not delay biopsy of a clinically suspicious abnormality. [id number] Electronically Signed: Aleksey Ibarra MD at 8:59 EDT ,
== END | disposition home or self-care (01) ==
LOC: OPBI 07:07
PROVIDERS: PCP Internal Medicine; Referring Provider Internal Medicine; Visit Provider Internal Medicine
DX: Z12.31 Encounter for screening mammogram for malignant neoplasm of breast (principal); Z80.3 Family history of malignant neoplasm of breast
CPT/HCPCS: 77063; 77067

== ENCOUNTER → 2023-12-11 | Outpatient (CLI) | payer MEDICAID, SELFPAY ==
[2023-12-11 15:23] LABS: Absolute Lymphocyte Count 1.76 X10^3/uL (0.83-4.51); Absolute Neutrophil Count 4.1 X10^3/uL (2.0-7.7); Basophil# 0.03 X10^3/uL; Basophil% 0.4 % (0-1); Eosinophil# 0.15 X10^3/uL; Eosinophils% 2.2 % (0-5); Hematocrit 39.4 % (37-47); Hemoglobin 12.7 g/dL (12.0-15.0); Lymphocyte # 1.76 X10^3/ul (0.83-4.51); Lymphocyte % 25.9 % (19-41); Mean Corp Hgb Conc 32.2 g/dL (32-36); Mean Corpuscular Hgb 30.7 pg (27.0-32.0); Mean Corpuscular Volume 95.2 fL (81-99); Mean Platelet Vol. 11.8 fl (6.2-12.0); Monocyte# 0.79 X10^3/uL; Monocyte% 11.6 % (0-10); NRBC Flagged by Analyzer 0 % (0-5); Neutrophil # 4.05 X10^3/uL (2.7-7.7); Neutrophil % 59.6 % (47-70); Platelet Count 252 K/mm3 (150-450); RBC Distribution Width CV 14.6 % (11.6-14.6); RBC Distribution Width SD 51.1 fl (35.1-43.9); Red Blood Count 4.14 M/mm3 (4.2-5.4); White Blood Count 6.8 K/mm3 (4.4-11.0)
[2023-12-11 16:08] LABS: ALB/GLOB Ratio 0.8 RATIO (0.9-2.4); AST(SGOT) 23 U/L (15-37); Alanine Aminotransfer ALT/SGPT 27 U/L (13-56); Albumin, Serum 3.3 g/dL (3.2-5.0); Alkaline Phosphatase 90 U/L (45-117); Anion Gap 6 (5-15); BUN 16 mg/dL (7-18); Calcium,Total 9.5 mg/dL (8.5-10.1); Chloride 107 mmol/L (98-107); Cholesterol 182 mg/dL (200); EST Glomerular Filtration Rate 77 mL/min (>60); Est Glom Filt Rate - Afr Amer 94 mL/min (>60); Glucose 97 mg/dL (74-106); High Density Lipoprotein 61 mg/dL; Potassium 4.3 mmol/L (3.5-5.1); Protein, Total 7.3 g/dL (6.4-8.2); Sodium Level 140 mmol/L (136-145); T4 Free Direct 1.28 ng/dL (0.76-1.46); Thyroid Stim Hormone (TSH) 0.76 uIU/mL (0.358-3.74); Triglycerides 70 mg/dL; Very Low Density Lipoprotein 14 mg/dL (5-40)
[2023-12-11 18:11] LABS: Vitamin B12 569 pg/mL (211-911)
== END | disposition home or self-care (01) ==
LOC: BIMLAB 11:43
PROVIDERS: PCP Internal Medicine; Referring Provider Internal Medicine; Visit Provider Internal Medicine
DX: E78.5 Hyperlipidemia, unspecified (principal); F41.9 Anxiety disorder, unspecified; F32.A Depression, unspecified
CPT/HCPCS: 36415; 80053; 80061; 82607; 84439; 84443; 85025

== ENCOUNTER → 2024-02-15 | Outpatient (CLI) | payer MEDICAID, SELFPAY ==
--- NOTE | 2024-02-15 07:47 | ECHOD_ITS ---
Reason For Study: Dyspnea/SOB Procedure This was a 2D Doppler, Color Flow transthoracic echocardiogram. Exam performed in department. Left Ventricle Normal size and thickness. The left ventricular ejection fraction is 60 %. Normal diastololic function. Right Ventricle Normal right ventricle. Atria The left and right atria are normal. Mitral Valve Trivial mitral valve insufficiency. Tricuspid Valve Trivial tricuspid valve insufficiency. Normal pulmonary artery pressure. Aortic Valve Trisinus/trileaflet aortic valve. Trivial aortic valve insufficiency. Pulmonic Valve The pulmonic valve is not well visualized. Great Vessels Normal sized aortic root. Pericardium/Pleural No pericardial effusion. Medication Unable to utilize Definity due to single kidney. MMode/2D Measurements & Calculations LVIDd: 3.7 cm IVSd: 1.0 cm LVOT diam: 2.0 cm LVIDs: 2.7 cm LVPWd: 0.98 cm RVDd: 3.5 cm FS: 27.6 % LVOT area: 3.1 cm2 Ao root diam: 3.4 cm LAV(MOD-bp): 52.3 ml Ao sinus diam: 2.9 cm LAV(MOD-bp) Indexed: 27.0 ml/m2 LAV(MOD-sp2): 39.2 ml LAV(MOD-sp4): 53.[address] Junction: 2.2 cm LA dimension(2D): 3.2 cm LA A4 area: 19.7 cm2 RA A4 area: 15.6 cm2 TAPSE: 1.9 cm Time Measurements MV dec time: 0.22 sec Doppler Measurements & Calculations MV E max lukas: 94.8 cm/sec Lat Peak E' Lukas: 10.5 cm/sec Med Peak E' Lukas: 10.4 cm/sec MV A max lukas: 87.3 cm/sec E/E' lat: 9.1 E/E' med: 9.1 MV E/A: 1.1 MV V2 max: 100.0 cm/sec MV P1/2t max lukas: 100.0 cm/sec Ao V2 max: 142.9 cm/sec MV max P.0 mmHg MV P1/2t: 74.1 msec Ao max P.2 mmHg MV V2 mean: 52.1 cm/sec Ao V2 mean: 94.3 cm/sec MV mean P.3 mmHg MV dec slope: 395.2 cm/sec2 Ao mean P.2 mmHg MV V2 VTI: 39.1 cm MVA(P1/2t): 3.0 cm2 Ao V2 VTI: 31.8 cm AV (velocity ratio): 0.75 MVA(VTI): 1.9 cm2 BRIGHT(I,D): 2.4 cm2 BRIGHT(V,D): 2.2 cm2 LV V1 max: 101.1 cm/sec SV(LVOT): 74.9 ml PA V2 max: 80.3 cm/sec LV V1 max P.1 mmHg PA max PG (full): 0.55 mmHg LV V1 mean P.2 mmHg PA V2 mean: 60.0 cm/sec LV V1 mean: 68.8 cm/sec PA mean PG (full): 0.46 mmHg LV V1 VTI: 23.9 cm TR max lukas: 225.6 cm/sec TR max P.4 mmHg ECHO/Echo Complete Interpretation Summary The left ventricular ejection fraction is 60 %. Ordering Physician: Dustin Vee Referring Physician: Dustin Vee Performed By: Jenaro Chavez RCS
--- NOTE | 2024-02-15 07:47 | VDLE_ITS ---
Reason For Study: SWELLING RIGHT LEFT GSV is normal. GSV is normal. CFV is compressible, spontaneous, phasic, CFV is compressible, spontaneous, phasic, competent and demonstrates normal competent, and demonstrates normal augmentation. augmentation. FV is compressible, spontaneous, phasic, FV is compressible, spontaneous, phasic, competent and demonstrates normal competent and demonstrates normal augmentation. augmentation. POP V is compressible, spontaneous, phasic, POP V is compressible, spontaneous, phasic, competent and demonstrates normal competent and demonstrates normal augmentation. augmentation. T/P Trunk is compressible. T/P Trunk is compressible. PTV is compressible. PTV is compressible. RT PerV is compressible. LT PerV is compressible. Procedure This is a venous duplex using B-mode, color flow and spectral Doppler. Exam performed in department. A preliminary report was called and/or faxed to Dr. Abreu @ [phone]. VL/Venous Duplex US - Albaro Extrem Interpretation Summary Deep veins of the bilateral lower extremities are patent and compressible segme ntally. There is no evidence of bilateral lower extremity deep vein thrombosis. The bilateral great saphenous veins appear patent and compressible segmentally. Ordering Physician: Dustin Vee Referring Physician: Solange Nuñez Performed By: Annamarie Hamilton, JERRY, RVT
== END | disposition home or self-care (01) ==
LOC: CVS 07:45
PROVIDERS: PCP Internal Medicine; Referring Provider Internal Medicine Cardiovascular Disease; Visit Provider Internal Medicine Cardiovascular Disease
DX: R60.0 Localized edema (principal); R06.00 Dyspnea, unspecified; I25.10 Atherosclerotic heart disease of native coronary artery without angina pectoris; I10 Essential (primary) hypertension
CPT/HCPCS: 93306; 93970

== ENCOUNTER 2024-05-05 10:53 | Emergency (ER) | payer MEDICAID, SELFPAY ==
[2024-05-05 10:54] VITALS: BP 150/78; PULSE 72; RESP 18; TEMP 35.9; O2SAT 100; BMI 32.9
--- NOTE | 2024-05-05 11:23 | RAD_ITS ---
STUDY: X-RAY - LEFT ELBOW REASON FOR EXAM: Female, 63 years old. Swelling TECHNIQUE: 3 view(s) of the elbow. COMPARISON: None. FINDINGS: There is lucency suggesting stenosis of the distal humerus. There is spurring of the humerus and radius and ulna. 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 There is loose body at the anterior joint. There is joint effusion with elevation of the fat pads. RAD/Elbow min 3 Views IMPRESSION: Degenerative changes with joint effusion and loose body. Electronically Signed: Lewis Lopez MD at 12:57 EST ,
[2024-05-05] MEDS: oxyCODONE 5 MG Tablet PO (11:24)
[2024-05-05] MEDS: Ketorolac 30 MG/ML Syringe IM (11:24)
--- NOTE | 2024-05-05 11:27 | EDS_ITS ---
HPI <BLADIMIR Mcgill - Last Filed: 05/05/24 13:16> History of Present Illness Chief Complaint: Upper Extremity Injury Narrative Narrative: Patient is a 63-year-old female with history of COPD, hypertension hyperlipidemia, gout, arthritis who presents to the emerged part with left elbow pain. Patient states she does have periods where her joints get swollen. Patient states of the last 2 days she noticed that her left elbow was getting more swollen and more painful. She has had injections by Dr. Friend in the past. Patient states that the pain is now too great, is more swollen, she is here for evaluation. Denies any fever chills. Denies any nausea or vomiting. [facility] <BLADIMIR Mcgill - Last Filed: 05/05/24 13:16> [facility] Medical History (Updated 05/05/24 @ 13:15 by BLADIMIR Mcgill) Atherosclerosis of coronary artery of [place] heart without angina pectoris (~05/05/24) Anxiety and depression Wears dentures History of steroid therapy Colon cancer screening Health care maintenance Bruising Bladder disease Easy bruising Cardiology follow-up encounter Osteoporosis Post-menopausal Varicose veins of both legs with edema BPPV (benign paroxysmal positional vertigo) COPD (chronic obstructive pulmonary disease) Muscle cramps Venous insufficiency of both lower extremities Wears glasses Alcohol use Marijuana use Arthritis Restless legs Back pain Vertigo Smoker Asthma Leg cramps History of pain when walking History of edema History of stress test Hypertension Flu vaccine need Hypertension Callus of foot COVID-19 vaccine dose declined Solitary kidney, acquired Urinary frequency Prolapse of bladder Bladder prolapse Vitamin D deficiency Abscess of left kidney Vitamin deficiency Vision problem Osteoarthritis High cholesterol Gout UTI (urinary tract infection) Back problem Asthma Arthritis Seasonal allergies Home Medications ?Medication ?Instructions ?Recorded ?Last Taken ?Type acetaminophen 650 mg 1,300 mg PO Q12H PRN pain 06/10/22 Unknown History tablet,extended release (Tylenol Arthritis Pain) compr.stocking,thigh,reg,large #2 ea 09/16/22 Unknown Rx ipratropium bromide 21 mcg (0.03 2 spray intranasal BID-TID PRN 05/17/23 Unknown Rx %) nasal spray allergy symptoms #30 mL Handicap Placard #1 ea 08/09/23 Unknown Rx ibandronate 150 mg tablet 150 mg PO QMONTH #7 tabs 08/09/23 Unknown Rx budesonide-formoterol HFA 160 2 puff inhalation BID PRN ASTHMA 09/25/23 Unknown History mcg-4.5 mcg/actuation aerosol inhaler (Symbicort) cholecalciferol (vitamin D3) 125 125 mcg PO DAILY #90 caps 12/06/23 Unknown Rx mcg (5,000 unit) capsule albuterol sulfate 90 mcg/actuation 2 puff inhalation Q6H PRN 12/15/23 Unknown Rx aerosol inhaler shortness of breath or wheezing #8.5 grams calcium carbonate 1,200 mg PO ONCE 01/25/24 Unknown History spironolactone 25 mg tablet 25 mg PO DAILY 01/25/24 Unknown History lisinopril 10 mg tablet 10 mg PO QDAY #90 tabs 02/07/24 Unknown Rx meclizine 25 mg tablet 25 mg PO BID #60 tabs 03/06/24 Unknown Rx fluoxetine 20 mg capsule 20 mg PO BID 3 months #180 caps 03/18/24 Unknown Rx hydrochlorothiazide 25 mg tablet 25 mg PO QAM #90 tabs 03/18/24 Unknown Rx oxycodone-acetaminophen 5 mg-325 1 tab PO Q8H PRN pain 3 days #10 05/05/24 Unknown Rx mg tablet (Percocet) tabs prednisone 20 mg tablet 40 mg (2 x 20 mg) PO DAILY 5 days 05/05/24 Unknown Rx #10 tabs Allergy/AdvReac Type Severity Reaction Status Date / Time adhesive tape Allergy Rash Verified 05/05/24 10:54 latex Allergy Hives Verified 05/05/24 10:54 Family History Other Alcohol abuse Anxiety Arthritis Asthma Breast cancer CVA (cerebral vascular accident) Cancer Depression Diabetes FH: defects Heart disease High cholesterol Hypertension Kidney disease Mental disorder Myocardial infarction Seizures Severe allergy Surgical History History of left heart catheterization (10/01/08) History of kidney removal History of bladder suspension procedure Hx of colonoscopy History of carpal tunnel surgery of left wrist Hx of vaginal hysterectomy History of evacuation of hematoma History of right hip replacement History of left hip replacement Social History Smoking Status: Current every day smoker tobacco type: cigarettes alcohol intake: current alcohol intake frequency: a few times a month substance use type: does not use caffeine: Yes what type of physical activity do you participate in: walking frequency: daily seatbelt use: always do you feel safe at home: Yes additional social history: cleaning service ROS <BLADIMIR Mcgill - Last Filed: 05/05/24 13:16> ROS ED ROS Narrative Constitutional: Negative for fever, chills, weight loss, weakness Eyes: Negative for vision loss, vision change, double vision ENT: Negative for any sore throat, ear pain, congestion Cardiovascular: Negative for any chest pain, tightness, palpitations Respiratory: Negative for any cough, sputum production, hemoptysis, dyspnea, dyspnea on exertion, orthopnea Gastrointestinal: Negative for any abdominal pain, nausea, vomiting, diarrhea, constipation, blood in stool, blood in vomit : Negative for any urinary frequency, dysuria, retention, blood in urine Muscle skeletal: Negative for any neck pain, back pain. Positive left shoulder pain Neurological: Negative for any headache, syncope, dizziness Skin: Negative for any rashes, itching, abrasions, lacerations Psychiatric: Negative for any depression, anxiety, stress, suicidal ideation, homicidal ideation Hematologic: Negative for any excessive bruising, easy bleeding EXAM <BLADIMIR Mcgill - Last Filed: 05/05/24 13:16> Physical Exam Narrative Exam Narrative: Vital signs reviewed. Extremities: Patient's left elbow does appear to be edematous. There is some pain with flexion or extension. There is no redness noted. Patient is no fever or chills. +2 pedal pulse. Patient has pain on the right through the arm. Neuro: Cranial nerves II through XII intact, no focal neurological deficits. Skin: Clean dry and intact with no rash, purpura, petechiae, vesicles or pustules. Backs/flank: No CVA tenderness, no midline spinal tenderness, no deformity. Psych: Normal mood and affect. No SI, HI or acute psychosis. Const Vital Signs: 05/05/24 10:54 Temperature 96.6 F L Temperature Source Temporal Pulse Rate 72 Respiratory Rate 18 Blood Pressure 150/78 H Blood Pressure Mean 102 Pulse Ox 100 Oxygen Delivery Method Room Air Positive well nourished and well developed General Appearance ED: well developed MDM <BLADIMIR Mcgill - Last Filed: 05/05/24 13:16> [facility] Treatment and Re-Evaluation Narrative: Differential diagnosis includes however is not limited to: Gouty arthritis, arthritis, gout, septic joint, fracture Patient appears generally well, vital signs are stable, patient is nontoxic- appearing. Patient presents to the emergency department with complaints of left elbow pain that is been ongoing for last 2 days. History of the same. Patient received a shot of Toradol as well as oxycodone. X-rays will be completed of the left elbow. All radiologic examinations were read, reviewed by the emergency department attending. From these reads, a plan of care will be put in place. She is x-ray of the elbow shows degenerative changes with a joint effusion and loose body. She was made aware these loose body by her orthopod. At this time, patient replaced on a short course of steroids. Patient also given a short course of pain medicine. Instructed to perform ice, gentle stretching. Patient will have an Karan bandage applied. Follow-up outpatient with Dr. Friend. <Dr. Louis Dallas DO - Last Filed: 05/05/24 14:03> [facility] History & Record Review Discussion w/independent historian: Patient Treatment and Re-Evaluation Narrative: Differential diagnosis includes however is not limited to: Gouty arthritis, arthritis, gout, septic joint, fracture Patient appears generally well, vital signs are stable, patient is nontoxic-appearing. Patient presents to the emergency department with complaints of left elbow pain that is been ongoing for last 2 days. History of the same. Patient received a shot of Toradol as well as oxycodone. X-rays will be completed of the left elbow. All radiologic examinations were read, reviewed by the emergency department attending. From these reads, a plan of care will be put in place. She is x-ray of the elbow shows degenerative changes with a joint effusion and loose body. She was made aware these loose body by her orthopod. At this time, patient replaced on a short course of steroids. Patient also given a short course of pain medicine. Instructed to perform ice, gentle stretching. Patient will have an Karan bandage applied. Follow-up outpatient with Dr. Friend. I have personally performed a face to face assessment of the patient and have reviewed the LEESA Note. I performed a substantive portion of the visit including all aspects of the following. My bolden findings include: History is 63-year-old female presenting with recurrent left elbow swelling and pain. She states that she sees Dr. Friend and has arthritis in the elbow. She has had cortisone injections before. Exam is left elbow appears swollen with limited range of motion. There is no significant warmth or erythema noted. Neurovascular is intact distal. Medical Decison Making my independent interpretation of the x-rays of the left elbow is degenerative changes with joint effusion. Clinically I think this is more arthritic in nature rather than something like gout pseudogout or infectious process. And have her ice Karan wrap start her on oral steroids. Would recommend orthopedic follow-up. Discharge Plan Triage Chief Complaint: Upper Extremity Injury ED Midlevel Provider: Tino Mittal ED Provider: Louis Dallas Dx/Rx/DC Orders Clinical Impression: Acute joint effusion, Arthritis pain, elbow Instructions: Polyarthritis, Arthritis: Exercise, ED Arthralgia Prescriptions: New prednisone 20 mg tablet 40 mg PO DAILY 5 Days Qty: 10 0RF oxycodone-acetaminophen [Percocet] 5-325 mg tablet 1 tab PO Q8H PRN (Reason: pain) 3 Days Qty: 10 0RF No Action acetaminophen [Tylenol Arthritis Pain] 650 mg tablet extended release 1,300 mg PO Q12H PRN (Reason: pain) (DME) compr.stocking,thigh,reg,large Misc See Rx Instructions .Route Qty: 2 2RF Rx Instructions: As directed (DME) Handicap Placard See Rx Instructions .ROUTE .MEDSUPPLY Qty: 1 0RF Rx Instructions: As directed, length of time 3 years ibandronate 150 mg tablet 150 mg PO QMONTH Qty: 7 0RF spironolactone 25 mg tablet 25 mg PO DAILY calcium carbonate 600 mg calcium (1,500 mg) tablet 1,200 mg PO ONCE fluoxetine 20 mg capsule 20 mg PO BID 90 Days Qty: 180 1RF Rx Instructions: administer in the morning and at noon/midday hydrochlorothiazide 25 mg tablet 25 mg PO QAM Qty: 90 3RF budesonide-formoterol [Symbicort] 160-4.5 mcg/actuation HFA aerosol inhaler 2 puff inhalation BID PRN (Reason: ASTHMA) ipratropium bromide 21 mcg (0.03 %) spray,non-aerosol 2 spray intranasal BID-TID PRN (Reason: allergy symptoms) Qty: 30 2RF Rx Instructions: administer into each nostril cholecalciferol (vitamin D3) 125 mcg (5,000 unit) capsule 125 mcg PO DAILY Qty: 90 3RF albuterol sulfate 90 mcg/actuation HFA aerosol inhaler 2 puff inhalation Q6H PRN (Reason: shortness of breath or wheezing) Qty: 8.5 3RF lisinopril 10 mg tablet 10 mg PO QDAY Qty: 90 1RF meclizine 25 mg tablet 25 mg PO BID Qty: 60 0RF Rx Instructions: TAKE 1 TABLET BY MOUTH THREE TIMES DAILY NEEDED for dizziness Primary Care Provider: Solange Nuñez Referrals: Solange Nuñez MD [Primary Care Provider] - Niko Friend DO [Med Staff - Active Staff] - Activity Restrictions/Additional Instructions: Please follow-up with Dr. Friend. Print Language: [place] Disposition Disposition: Home, Self Care Discharge Date/Time: 05/05/24 13:21
[2024-05-05] MEDS: predniSONE 20 MG Tablet 40 MG PO (13:14)
== END 2024-05-05 13:21 | disposition home or self-care (01) ==
PROVIDERS: Emergency Provider Emergency Medicine; PCP Internal Medicine; Visit Provider Emergency Medicine
DX: M25.522 Pain in left elbow (principal); J44.9 Chronic obstructive pulmonary disease, unspecified; I25.10 Atherosclerotic heart disease of native coronary artery without angina pectoris; E78.00 Pure hypercholesterolemia, unspecified; I10 Essential (primary) hypertension; Z79.51 Long term (current) use of inhaled steroids; Z79.899 Other long term (current) drug therapy; M19.90 Unspecified osteoarthritis, unspecified site; Z90.710 Acquired absence of both cervix and uterus; Z96.643 Presence of artificial hip joint, bilateral; F17.210 Nicotine dependence, cigarettes, uncomplicated; M25.422 Effusion, left elbow
CPT/HCPCS: 73080; 96372; 99282

== ENCOUNTER → 2024-07-03 | Outpatient (CLI) | payer MEDICAID, SELFPAY ==
[2024-07-03 12:58] LABS: Anion Gap 5 (5-15); BUN 13 mg/dL (7-18); BUN/Creat Ratio 17.1 RATIO (10-20); Calcium,Total 9.4 mg/dL (8.5-10.1); Chloride 105 mmol/L (98-107); Creatinine, Serum 0.76 mg/dL (0.55-1.02); EST Glomerular Filtration Rate 82 mL/min (>60); Est Glom Filt Rate - Afr Amer 99 mL/min (>60); Glucose 95 mg/dL (74-106); Potassium 4.7 mmol/L (3.5-5.1); Sodium Level 139 mmol/L (136-145)
[2024-07-03 12:59] LABS: Vitamin D,25 Hydroxy 73.4 ng/mL
== END | disposition home or self-care (01) ==
LOC: BIMLAB 10:04
PROVIDERS: PCP Internal Medicine; Referring Provider Internal Medicine; Visit Provider Internal Medicine
DX: I10 Essential (primary) hypertension (principal); M85.80 Other specified disorders of bone density and structure, unspecified site
CPT/HCPCS: 36415; 80048; 82306

== ENCOUNTER → 2024-10-08 | Outpatient (CLI) | payer MEDICAID, SELFPAY ==
--- NOTE | 2024-10-08 07:54 | BI_ITS ---
EXAM: SCRN MAMM (CAD)W/NASIR BILAT DATE: 10/08/2024 CLINICAL HISTORY: F, Age 63 y/o , BREAST CANCER SCREENING Aunt with breast cancer. BREAST CANCER RISK ASSESSMENT: Not assessed. TECHNIQUE: Bilateral screening digital breast tomosynthesis with 2D and 3D images. Computer aided detection. COMPARISON: Prior exam(s) dated October 09, 2023.. FINDINGS: TISSUE DENSITY: The breast tissue is almost entirely fatty. Bilateral Breast Mammographic Findings: No significant masses, calcifications or other abnormalities are identified. BI/SCRN MAMM (CAD)W/NASIR BILAT IMPRESSION: OVERALL FINAL ASSESSMENT: BIRADS 1 NEGATIVE RECOMMENDATION: Routine annual follow-up in 1 Year A letter with findings and recommendations will be mailed to the patient. Reading Location: [id number]
--- NOTE | 2024-10-08 07:58 | BD_ITS ---
PROCEDURE: DEXA BONE DENSITY STUDY 10/08/2024 REASON FOR EXAM: OSTEOPENIA WITH HIGH FRACTURE RISK F, age 63 y/o . Postmenopausal. TECHNIQUE: DXA scan of sites with data reported below. REFERENCE LINKS: [facility] Adult Positions COMPARISON: Prior study dated October 05, 2022. FINDINGS: BMD and T-SCORES Lumbar spine: 1.064 g/cm2, T-score 0.3 Levels: L1 through L4 Left 1/3 radius: 0.429 g/cm2, T-score -2.8 Change from prior: Loss of 4.7%. The World Health Organization has defined the following categories based on bone density: Normal bone density: T-score equal to or greater than -1.0 Osteopenia: T-score between -1.0 and -2.5 Osteoporosis: T-score equal to or less than -2.5 The patient does meet the pharmacological treatment recommendations for prevention of osteoporosis. BD/Dexa Bone Density Study IMPRESSION: OSTEOPOROSIS. Recommend follow-up as clinically warranted. Reading Location: [facility]
== END | disposition home or self-care (01) ==
LOC: OPBD 07:53
PROVIDERS: PCP Internal Medicine; Referring Provider Internal Medicine; Visit Provider Internal Medicine
DX: Z12.31 Encounter for screening mammogram for malignant neoplasm of breast (principal); Z78.0 Asymptomatic menopausal state; Z80.3 Family history of malignant neoplasm of breast; M85.80 Other specified disorders of bone density and structure, unspecified site
CPT/HCPCS: 77063; 77067; 77080

== ENCOUNTER → 2025-01-10 | Outpatient (CLI) | payer MEDICAID, SELFPAY ==
--- NOTE | 2025-01-10 13:54 | VDLE_ITS ---
Reason For Study Reason For Study: Swelling RIGHT LEFT GSV is normal. CFV is compressible, spontaneous, phasic, competent, CFV is compressible, spontaneous, phasic, competent and demonstrates normal augmentation. and demonstrates normal augmentation. FV is compressible, spontaneous, phasic, competent and demonstrates normal augmentation. POP V is compressible, spontaneous, phasic, competent and demonstrates normal augmentation. T/P Trunk is compressible. Nonvascularized structure noted in the popliteal fossa measuring 1.73x3.84x8.42 cm. Unable to visualize PTV. RT PerV is compressible. Procedure This is a venous duplex using B-mode, color flow and spectral Doppler. Exam performed in department. A preliminary report was called and/or faxed to Solange Nuñez MD. VL/Venous Duplex US, Unilateral Interpretation Summary Deep veins of the right lower extremity are patent and compressible segmentally . There is no evidence of right lower extremity deep vein thrombosis. Valvular competence appears intact within the p roximal deep venous system on the right . The right great saphenous vein appears patent and compressible segmentally. The right posterior tibial vein was not visualized. The left common femoral vein is patent and compressible. A non-vasc ular, hypoechoic structure is noted in the right popliteal space, measuring 1.73 cm x 3.84 cm x 8.42 cm. This probably represents a popliteal cyst. Clinical correlation is advised. Ordering Physician: Solange Nuñez Referring Physician: Solange Nuñez Performed By: Sheyla Ruiz RVT
[2025-01-10 16:29] LABS: AST(SGOT) 22 U/L (<=31); Alanine Aminotransfer ALT/SGPT 16 U/L (<=34); Albumin, Serum 3.8 g/dL (3.4-4.8); Alkaline Phosphatase 86 U/L (35-104); Anion Gap 12 (5-15); BUN 21 mg/dL (4-19); BUN/Creat Ratio 21.1 RATIO (10-20); Calcium,Total 9.5 mg/dL (7.6-11.0); Carbon Dioxide 26.2 mmol/L (21.0-32.0); Chloride 100 mmol/L (98-108); Cholesterol 132 mg/dL (<=200); Globulin 3.0 g/dL (2.2-4.2); Glucose 97 mg/dL (70-99); Low Density Lipoprotein Calc. 56 mg/dL; Potassium 4.1 mmol/L (3.3-5.1); Triglycerides 76 mg/dL; Very Low Density Lipoprotein 15 mg/dL (5-40); cholesterol:hdl ratio screen 2.16
[2025-01-10 16:33] LABS: Hematocrit 33.7 % (37-47); Hemoglobin 11.5 g/dL (12.0-15.0); Immature Granulocytes Count 0.010 X10^3/uL (0.0-0.0); Mean Corp Hgb Conc 34.1 g/dL (32-36); Mean Corpuscular Volume 90.8 fL (81-99); Mean Platelet Vol. 12.0 fl (6.2-12.0); NRBC Flagged by Analyzer 0 % (0-5); Platelet Count 199 K/mm3 (150-450); RBC Distribution Width CV 13.8 % (11.6-14.6); RBC Distribution Width SD 46.0 fl (35.1-43.9); Red Blood Count 3.71 M/mm3 (4.2-5.4); White Blood Count 6.6 K/mm3 (4.4-11.0)
== END | disposition home or self-care (01) ==
LOC: CVS 13:51
PROVIDERS: PCP Internal Medicine; Referring Provider Internal Medicine; Visit Provider Internal Medicine
DX: M79.89 Other specified soft tissue disorders (principal); M79.604 Pain in right leg; I10 Essential (primary) hypertension; E78.5 Hyperlipidemia, unspecified
CPT/HCPCS: 36415; 80053; 80061; 85025; 93971

== ENCOUNTER 2025-05-15 07:58 | Outpatient (CLI) | payer MEDICAID, SELFPAY ==
[2025-05-15 08:02] VITALS: BP 141/70; PULSE 62; RESP 16; O2SAT 100; BMI 32.1
[2025-05-15 08:55] VITALS: BP 134/67; PULSE 56; RESP 16; TEMP 35.6; O2SAT 100
== END 2025-05-15 23:59 | disposition home or self-care (01) ==
LOC: MEDOUTP 07:58
PROVIDERS: PCP Internal Medicine; Referring Provider Internal Medicine; Visit Provider Internal Medicine
DX: M81.0 Age-related osteoporosis without current pathological fracture (principal)
CPT/HCPCS: 96365; A4216; J3489